=== PATIENT | male | born 1960 | race Caucasian/White ===

== ENCOUNTER 2018-09-21 01:21 | Inpatient (IN) | payer MEDICARE, BC ==
[2018-09-21] MEDS ORDERED: Acetaminophen TAB* 325 MG PO ONE (01:54)
[2018-09-21] MEDS ORDERED: NS 0.9% 1000 ML** 3,000 ML IV ONE (01:55)
[2018-09-21] MEDS ORDERED: Vancomycin(*) 1,000 MG in NS 0.9% 250 ML* 250 ML IVPB ONE ×2 (01:56→06:30)
[2018-09-21] MEDS ORDERED: Levofloxacin 750 MG IVPREMIX(* 750 MG/150 ML BAG IVPB ONE (01:56)
[2018-09-21] MEDS ORDERED: NS 0.9% 1000 ML** 1,000 ML IV ONE (01:57)
[2018-09-21] MEDS ORDERED: Ibuprofen TAB* 400 MG PO ONE (01:58)
--- NOTE | 2018-09-21 02:01 | ED ---
Shortness of Breath - HPI Summary HPI Summary: A 58 y/o male brought in by [facility] presents to [facility] with a chief complaint of SOB since yesterday. He also c/o CP with deep breaths, shoulder pain, fever, chills and productive cough. At triage he rated his pain as a 3/10 in severity. The patient reports that on 09/13/18 he was seeing his binder operator in [place] when he was sent to the [facility] ED and then was transferred to [facility]. The patient reports on 09/13/18 he had a catheter placed and it was taken out on 09/16/18 and he was discharged. Pt has a Shiley in left upper chest wall. The patient reports a pericardial effusion and had 1100 CCs of fluid drained. He claims that his results showed no bacteria or virus. The patient is also in end stage renal failure from his multiple myeloma and has been on dialysis for 6 weeks. He is being treated at the [facility] in [facility]. The patient reports that he was on Velcade for two years but is currently off of his medications. - History of Current Complaint Chief Complaint: EDShortnessOfBreath Hx Obtained From: Patient, Family/Director Economic, EMS Onset/Duration: Sudden Onset, Lasting Days, Still Present Timing: Constant Current Severity: Mild Dyspnea At: Rest Aggrevating Factors: Nothing Alleviating Factors: Nothing Associated Signs & Symptoms: Cough (Productive), Chest Pain w/Cough, Fever, Chills - Allergy/Home Medications Allergies/Adverse Reactions: Allergies Allergy/AdvReac Type Severity Reaction Status Date / Time latex Allergy Hives Verified 09/21/18 01:50 Home Medications: Home Medications ALPRAZolam [Alprazolam] 0.5 mg PO Q12HR 09/21/18 [History Confirmed 09/21/18] Acyclovir [Zovirax] 200 mg PO Q12HR 09/21/18 [History Confirmed 09/21/18] Aspirin 81 mg PO BEDTIME 09/21/18 [History Confirmed 09/21/18] Benadryl Allergy 25 mg PO BID 09/21/18 [History Confirmed 09/21/18] Cyanocobalamin (Vitamin B-12) [Vitamin B12] 2,500 mcg PO DAILY 09/21/18 [ History Confirmed 09/21/18] Levothyroxine Sodium 50 mcg PO DAILY 09/21/18 [History Confirmed 09/21/18] Magnesium Oxide 250 mg PO DAILY 09/21/18 [History Confirmed 09/21/18] Pramipexole 1 mg PO BEDTIME 09/21/18 [History Confirmed 09/21/18] Tramadol HCl ER 200 mg PO DAILY 09/21/18 [History Confirmed 09/21/18] Vitamin B6* 100 mg PO 09/21/18 [History] Vitamin D3 2,000 mcg PO DAILY 09/21/18 [History Confirmed 09/21/18] PMH/Surg Hx/FS Hx/Imm Hx History: Reports: Other Problems/Disorders - End stage renal failure Sensory History: Denies: Hx Deafness EENT History: Denies: Hx Deafness Neurological History: Reports: Hx Peripheral Neuropathy - Cancer History Cancer Type, Location and Year: multiple myeloma for 2 years - Surgical History Surgery Procedure, Year, and Place: Cardiac cath on 09/13/18 Infectious Disease History: No Infectious Disease History: Denies: Traveled Outside the [place] in Last 30 Days - Family History Known Family History: Negative: Blood Disorder - Social History Lives: With Family Alcohol Use: None Hx Substance Use: No Substance Use Type: Reports: None Hx Tobacco Use: Yes Smoking Status (MU): Heavy Every Day Tobacco Smoker Review of Systems Positive: Fever, Chills Positive: Chest Pain Positive: Shortness Of Breath, Cough Positive: Arthralgia - shoulder pain All Other Systems Reviewed And Are Negative: Yes Physical Exam - Summary Physical Exam Summary: VITAL SIGNS: Reviewed. GENERAL: Patient is a morbidly obese MALE who is lying comfortable in the stretcher. Patient is not in any acute respiratory distress. HEAD AND FACE: No signs of trauma. No ecchymosis, hematomas or skull depressions. No sinus tenderness. EYES: PERRLA, EOMI x 2, No injected conjunctiva, no nystagmus. EARS: Hearing grossly intact. Ear canals and tympanic membranes are within normal limits. MOUTH: Oropharynx within normal limits. NECK: Supple, trachea is midline, no adenopathy, no JVD, no carotid bruit, no c- spine tenderness, neck with full ROM. CHEST: Symmetric, no tenderness at palpation, Dialysis catheter left upper chest wall LUNGS: Clear to auscultation bilaterally. No wheezing or crackles. CVS: tachycardic and irregular, S1 and S2 present, no murmurs or gallops appreciated. ABDOMEN: Soft, non-tender. Obese and distended. No rebound no guarding, and no masses palpated. Bowel sounds are normal. EXTREMITIES: FROM in all major joints, Bilateral pitting edema +2-3 with chronic venous stasis, no cyanosis or clubbing. NEURO: Alert and oriented x 3. No acute neurological deficits. Speech is normal and follows commands. SKIN: Dry and warm Triage Information Reviewed: Yes Vital Signs On Initial Exam: Initial Vitals Temp Pulse Resp BP Pulse Ox 101.0 F 130 24 92/47 95 09/21/18 01:35 09/21/18 01:35 09/21/18 01:35 09/21/18 01:35 09/21/18 01:35 Vital Signs Reviewed: Yes Diagnostics - Vital Signs Vital Signs Temp Pulse Resp BP Pulse Ox 09/21/18 01:35 101.0 F 130 24 92/47 95 - Laboratory Result Diagrams: 09/21/18 02:36 09/21/18 06:15 Lab Statement: Any lab studies that have been ordered have been reviewed, and results considered in the medical decision making process. - Radiology CXR Radiology Interpretation Completed By: ED Physician Summary of Radiographic Findings: Bilateral basal atelectasis. No acute process. Pending official imaging report. - CT chest/abdomen/pelvis CT Interpretation Completed By: Radiologist Summary of CT Findings: CT chest impression: 1. Cardiomegaly with coronary artery calcification. Moderate pericardial. effusion. 2. Dilated main pulmonary artery trunk measuring up to 3.5 cm in transverse. diameter which may be due to pulmonary artery hypertension. 3. Mild centrilobular emphysema. Bibasilar atelectasis. 4. A 14 mm pulmonary nodule in the right lower lobe. ED physician has reviewed this imaging report. CT abdomen/pelvis impression: 1. Hepatosplenomegaly. 2. Bilateral perinephric stranding which is non- specific however could be seen. in pyelonephritis. 3. A small hiatal hernia. 4. Colonic diverticulosis with no evidence of acute diverticulitis. 5. A 14 mm pulmonary nodule in the right lower lobe. Moderate pericardial. effusion. ED physician has reviewed this imaging report. - EKG 2:20 Cardiac Rate: Tachycardia - [address] Segment: Non-Specific Summary of EKG Findings: EKG at 02:20 showed sinus tachycardia 126 bpm, non- specific ST. Re-Evaluation - Re-Evaluation First Eval Re-Evaluation Time: 02:06 Change: Unchanged Comment: Re-evaluating patient Second Eval Re-Evaluation Time: 02:28 Change: Unchanged Comment: Re-evaluating patient Third Eval Re-Evaluation Time: 03:15 Change: Unchanged Comment: Re-evaluating patient Fourth Eval Re-Evaluation Time: 04:18 Change: Unchanged Comment: Discussed results. Course/Dx - Course Course Of Treatment: A 58 y/o male brought in by [facility] presents to [facility] with a chief complaint of SOB since yesterday. The physical exam revealed that the patient is morbidly obese with a dialysis catheter left upper chest wall, heart is tachycardic and irregular, abdomen is distended without tenderness, bilateral pitting edema +2-3 with bilateral chronic venous stasis. In the ED course the patient was given Tylenol PO, Motrin PO, Levaquin IV, Vancomycin IV, Levophed IV, Morphine IV and Sodium Chloride IV. EKG at 02: 20 showed sinus tachycardia 126 bpm, non-specific ST. CXR showed Bilateral basal atelectasis. No acute process. Bloodwork, chemistries and urines obtained. Urines consitent with UTI. CT chest impression: 1. Cardiomegaly with coronary artery calcification. Moderate pericardial. effusion. 2. Dilated main pulmonary artery trunk measuring up to 3.5 cm in transverse. diameter which may be due to pulmonary artery hypertension. 3. Mild centrilobular emphysema. Bibasilar atelectasis. 4. A 14 mm pulmonary nodule in the right lower lobe. CT abdomen/pelvis impression: 1. Hepatosplenomegaly. 2. Bilateral perinephric stranding which is non-specific however could be seen. in pyelonephritis. 3. A small hiatal hernia. 4. Colonic diverticulosis with no evidence of acute diverticulitis. 5. A 14 mm pulmonary nodule in the right lower lobe. Moderate pericardial. effusion. Case discussed with Dr. Giron, hospitalist, who accepted the patient for admission. - Diagnoses Provider Diagnoses: Pericardial effusion, Pyelonephritis, Sepsis - Physician Notifications Discussed Care of Patient With: Mouna Giron Time Discussed With Above Provider: 04:29 Instructed by Provider To: Admit As Inpatient - Critical Care Time Critical Care Time: 75-104 min Discharge - Sign-Out/Discharge Documenting (check all that apply): Patient Departure - admit Patient Received Moderate/Deep Sedation with Procedure: No - Discharge Plan Condition: Fair Disposition: ADMITTED TO [facility] - Billing Disposition and Condition Condition: FAIR Disposition: Admitted to [facility] - Attestation Statements Document Initiated by Scribe: Yes Documenting Scribe: Ramiro Castro Provider For Whom Derrick is Documenting (Include Credential): Sage Valdez MD Scribe Attestation: Ramiro Paula, scribed for Sage Valdez MD on 09/22/18 at 0603. Scribe Documentation Reviewed: Yes Provider Attestation: The documentation as recorded by the Ramiro grace accurately reflects the service I personally performed and the decisions made by Amber velazquez MD Status of Scribe Document: Viewed
[2018-09-21] MEDS ORDERED: Morphine 4 MG/ML VIAL (1 ml) 4 MG/ML VIAL IV ONE (02:29)
[2018-09-21] MEDS ORDERED: Norepinephrine 16MCG/ML IVPRE* 4,000 MCG/250 ML BAG IV ONE (02:44)
[2018-09-21 02:45] LABS: ABS Basophils 0 10^3/ul (0-0.2); ABS Eosinophils 0.1 10^3/ul (0-0.6); ABS Lymphocytes 0.1 10^3/ul (1.0-4.8); ABS Monocytes 0.8 10^3/ul (0-0.8); ABS Nucleated RBC 0 10^3/ul; Eosinophil % 0.5 %; Hematocrit 32 % (36-46); Hemoglobin 10.5 g/dL (14.0-18.0); Lymphocyte % 0.8 %; Mean Corpuscular HGB Conc 33 g/dL (31-36); Mean Corpuscular Hemoglobin 31 pg (27-31); Mean Corpuscular Volume 94 fL (80-94); Mean Platelet Volume 7.5 fL (7.4-10.4); Nucleated Red Blood Cells % 0; Platelet Count 159 10^3/uL (150-450); Red Blood Count 3.35 10^6 /uL (4.18-5.48); Red Cell Distribution Width 19 % (10.5-15)
[2018-09-21 02:52] LABS: Activated Partial Thrombo Time 62.3 seconds (26.0-36.3); INR 1.25 (0.77-1.02)
[2018-09-21 03:01] LABS: Albumin 3.3 g/dL (3.2-5.2); Albumin/Globulin Ratio 1.1 (1-3); BUN/Creatinine Ratio 6.5 (8-20); C Reactive Protein 99.8 mg/L (<8.01); Calcium 9.1 mg/dL (8.6-10.3); EGFR African American 15.9 (>60); EGFR Non-African American 13.1 (>60); Globulin 3.1 g/dL (2-4); Total Bilirubin 0.7 mg/dL (0.2-1.0); Total Protein 6.4 g/dL (6.4-8.9)
[2018-09-21 03:03] LABS: Troponin I 0.01 ng/mL (<0.04)
[2018-09-21 03:57] LABS: Urine Appearance Cloudy; Urine Bacteria Absent (Absent); Urine Bilirubin Negative (Negative); Urine Blood 3+ (Negative); Urine Color Amber; Urine Glucose 1+(50 mg/dL) (Negative); Urine Ketones Trace (Negative); Urine Nitrite Negative (Negative); Urine Protein 2+(100 mg/dL) (Negative); Urine Red Blood Cell 3+(>10/hpf) (Absent); Urine Specific Gravity 1.015 (1.010-1.030); Urine Squamous Epithelial Cell Present (Absent); Urine Urobilinogen Negative (Negative); Urine White Blood Cell 3+(>20/hpf) (Absent)
[2018-09-21] MEDS: Norepinephrine 16MCG/ML IVPRE* 4,000 MCG/250 ML BAG IV SCH ×2 (04:13→13:23)
[2018-09-21] MEDS: NS 0.9% 1000 ML** 1,000 ML IV SCH ×2 (04:15→08:27)
[2018-09-21 04:18] LABS: Erythrocyte Sed Rate 83 mm/Hr (0-19)
[2018-09-21 05:11] LABS: Influenza A Molecular NEGATIVE (Negative); Influenza B Molecular NEGATIVE (Negative)
[2018-09-21] MEDS ORDERED: Polyethylene Glycol 3350* 17 GM PACKET PO PRN (05:13)
[2018-09-21] MEDS ORDERED: Senna TAB PO PRN (05:13)
[2018-09-21] MEDS ORDERED: diPHENhydraMINE PO* 25 MG PO PRN (05:16)
[2018-09-21] MEDS ORDERED: Piperacillin/Tazobac ADVAN(*) 3.375 GM in NS 0.9% 100 ML* 100 ML IVPB ONE (05:32)
[2018-09-21] MEDS ORDERED: Vancomycin per Pharmacy* NOTE FOLLOW UP SCH (06:00)
[2018-09-21] MEDS ORDERED: Meropenem 1 GM PREMIX(*) 1 GM/50 ML BAG IV SCH (06:00)
[2018-09-21] MEDS ORDERED: Zosyn per Pharmacy* NOTE FOLLOW UP SCH (06:00)
[2018-09-21 06:40] LABS: BUN/Creatinine Ratio 6.7 (8-20); Calcium 8.4 mg/dL (8.6-10.3); EGFR African American 16.3 (>60); EGFR Non-African American 13.4 (>60); Magnesium 1.9 mg/dL (1.9-2.7); Phosphorus 2.9 mg/dL (2.5-5.0); Potassium 3.9 mmol/L (3.5-5.0)
[2018-09-21] MEDS: Levothyroxine TAB* 50 MCG TAB PO SCH (06:41)
[2018-09-21] MEDS: Heparin VIAL(*) 5000 UNITS/ML VIAL (FIVE THOUSAND) SUBCUT SCH ×3 (06:41→22:04)
--- NOTE | 2018-09-21 07:28 | HP ---
HISTORY AND PHYSICAL: DATE OF ADMISSION: 09/21/18 PRIMARY CARE PROVIDER: Dr. Bessie Holt in [place], [place]. HEALTHCARE PROXY AND POWER OF CREPE SOLE SCOURER: Julissa, , phone number [phone]. CODE: Full code. CHIEF COMPLAINT: Acute shortness of breath, weakness, fevers, and burning on urination. HISTORY OF PRESENT ILLNESS: Mr. Myers is a 58-year-old man with a history of multiple myeloma, previously on chemotherapy complicated by end-stage renal disease, now on hemodialysis for the last 6 weeks. He also has active tobacco use, hypothyroidism, obesity, obstructive sleep apnea, on CPAP, and posttraumatic stress disorder. He is presenting with feeling of fatigue, weakness, and chills for the last couple of days. He is able to make small amounts of urine daily and reports severe burning on urination for the last few days. He denies chest pain, cough, abdominal pain, nausea, vomiting, diarrhea. The patient does report constipation chronically. He denies new flank pain, only reporting his chronic back pain, made worse from sitting in the hospital stretcher. Of note, the patient had a recent admission at [facility] and then transferred to [facility] for pericarditis complicated by pericardial effusion. He had a drain placed with approximately 1 L of fluid drained over 3 days and he was discharged from that admission 5 days ago. He reports no bacteria or virus found in the pericardial fluid. In the emergency room, the patient was found with tachycardia, fever, and elevated white blood cell count. Per ER physician, bedside ultrasound was without large pericardial effusion or evidence of tamponade. IVC diameter was decreased. The patient underwent CT of chest, abdomen, and pelvis, which was concerning for pyelonephritis. He was given approximately 3 L of fluid and required norepinephrine drip to maintain good blood pressures. He was also given vancomycin and Levaquin and admitted to the ICU. Of note, in the emergency room, the patient was given ibuprofen as well. PAST MEDICAL HISTORY: 1. Multiple myeloma being treated at the [facility] in [place], [place]. He reports being on Velcade for 2 years, but has not recently been on treatment. 2. End-stage renal disease, either complication from multiple myeloma or his antineoplastic agents. Gets hemodialysis Tuesday, Tuesday, Tuesday through dialysis catheter in the left upper chest wall. 3. Obesity and obstructive sleep apnea, on home CPAP. 4. Active tobacco use. 5. Neuropathy impairing fine motor skills in hands. 6. PTSD. 7. Hypothyroidism. HOME MEDICATIONS: 1. Aspirin 81 mg daily. 2. Alprazolam 0.5 q.12 hours for anxiety. 3. Benadryl 25 mg p.o. b.i.d. for itching. 4. Acyclovir 200 mg p.o. q.12 hours. 5. Pramipexole 1 mg p.o. at bedtime. 6. Levothyroxine 50 mcg daily. 7. Magnesium 250 mg daily. 8. Vitamin D 2000 units daily. 9. Tramadol 200 mg ER daily. 10. Vitamin B12 and B6. ALLERGIES: LATEX. The patient reports that phenobarbital makes his mind very altered, explained this is not an allergy. GABAPENTIN cause memory issues. FAMILY HISTORY: His father at 63 from a stroke. His mother is alive and well at 82; she has a history of cervical and breast cancer. SOCIAL HISTORY: The patient is a retired public service officer. He lives at home with his , Julissa who is his healthcare proxy and power of real estate attorney. He is a pack and a half day smoker since age 11. He uses medical marijuana. PHYSICAL EXAMINATION GENERAL: Chronically ill-appearing obese man, in no acute distress, alert and conversant and very pleasant. VITAL SIGNS: T-max 101, heart rate 80s, blood pressure 105/50, on Levophed 5, oxygen saturation 100% on room air, respiratory rate 14. HEENT: Pupils equal, round, reactive to light. Oropharynx is clear. NECK: Supple. Unable to appreciate JVP due to body habitus. LUNGS: Clear to auscultation bilaterally. HEART: Regular rate and rhythm. No murmurs, gallops, or rubs. CHEST: Dialysis catheter noted in the left upper chest wall. ABDOMEN: Protuberant, soft, nontender. Bowel sounds normal. No CVA tenderness. EXTREMITIES: Lower extremities distally with circumferential erythema that the patient reports is his baseline, not tender to palpation. 2+ pitting edema to half up martinez. The patient reports this significantly improved from prior to dialysis. DIAGNOSTIC STUDIES/LAB DATA: Labs reviewed and significant for WBC elevated to 17 with neutrophilic predominance, normocytic anemia with hemoglobin 10.5, ESR 83. INR 1.25. BUN and creatinine 30/4.16. CRP 100. BNP 108. UA with protein, blood, positive leuk esterase, absent bacteria. Influenza swab negative. Chest x-ray grossly normal on overnight read. CT chest, abdomen, and pelvis without contrast, significant for cardiomegaly, dilated main pulmonary artery, mild centrilobular emphysema, hepatosplenomegaly , bilateral perinephric stranding, nonspecific but could be seen in pyelonephritis, 14 mm pulmonary nodule in the right lower lobe. EKG with sinus tach, 126. ASSESSMENT AND PLAN: This is a 58-year-old man with a history of multiple myeloma, previously on Velcade, complicated by end-stage renal disease, now on hemodialysis; obesity and obstructive sleep apnea, on CPAP; active tobacco use; hypothyroidism, who presents shortly after recent discharge for pericarditis with pericardial effusion with new shortness of breath, weakness, chills, fevers, and dysuria. He was found with intravascular volume depletion, leukocytosis with neutrophilic predominance and CT scan with possible pyelonephritis. He has been fluid resuscitated and still requiring pressor, so he will be admitted to the ICU for further monitoring. 1. Neuro: No active issues. H/o PTSD. - Continue to monitor mental status. - will continue home benzo p.r.n. if awake and alert. 2. Cardiovascular. Septic shock from possible pyelo. - Titrate pressors off as tolerated. - Maintain MAP greater than 65, systolic blood pressure greater than 90. - Monitor urine output. - Judicious use of fluid given history of end-stage renal disease, only making small amounts of urine. - Continue home aspirin for primary prophylaxis. - Continue to monitor on telemetry. 3. Respiratory: DALLAS. Active tobacco use. - continue CPAP nightly. - patient reports SOB, but oxygen saturations are normal on room air. Follow up VBG - declines NRT 4. ID: Septic shock from bacterial source. Highest on differential given imaging findings is pyelonephritis. No pneumonia seen on CT of the chest. - follow up blood and urine cultures - continue on vanc and Zosyn; broaden to cabapenem if not improving 5. GI: No active issues. The patient reports chronic constipation. - Will start on bowel regimen. 6. Renal: ESRD with HD MWF. Last dialysis session was afternoon of 09/20/18. - renally dose meds, avoid nephrotoxic meds - including NSAIDs - follow up morning electrolytes and phosphorus - maintain on a renal diet 7. Endocrine: History of hypothyroidism. Continue home levothyroxine. 8. For DVT prophylaxis, subcu heparin. The patient is full code. TIME SPENT: Approximately 70 minutes spent on admission of this patient, more than half of which was spent at bedside for interview and exam. [id number]/[facility] #: [id number] TONY
[2018-09-21] MEDS: Cyanocobalamin TAB* 500 MCG PO SCH (09:39)
[2018-09-21] MEDS: Acyclovir* 200 MG CAP PO SCH ×2 (09:39→23:43)
[2018-09-21] MEDS: traMADol TAB* 50 MG PO SCH ×2 (09:39→22:03)
[2018-09-21] MEDS: Magnesium Oxide TAB* 400 MG PO SCH (09:39)
[2018-09-21] MEDS ORDERED: Perflutren Lipid Microsphere* 3 ML VIAL ONE (10:38)
[2018-09-21] MEDS: ZOSYN 3.375 GM Q12H per EXTENDED INFUSION IVPB SCH ×4 (11:37→22:03)
--- NOTE | 2018-09-21 12:35 | ECHO ---
Patient: LIZBET VOGEL [facility] Rec#: [id number] : 1960 Date: 09/21/2018 Age: 58y Height: 180 cm / 70.9 in Weight: 147.4 kg / 324.9 lbs Sex: M BSA: 2.59 Room#: ICU 3 Admit Date#: 09/21/2018 Type: Inpatient Referring: Ronal Alonso MD Reading: Mario Velez MD Technical Sales Engineer: Jazmín Burnette RN RDCS Transthoracic Echocardiogram Indication: Pericardial effusion BP: 112/54 HR: 74 Rhythm: NSR with PACs Findings History: Morbid obesity, multiple myeloma, chemotherapy, ESRD, hemodialysis. thyroid disease, DALLAS, recent pericarditis with pericardial effusion and pericardiocentesis. Technical Comments: The study is technically limited due to poor acoustic windows. The study is technically limited due to patient body habitus. The study is technically limited due to the patient's smoking history. Left Ventricle: The left ventricular chamber size is normal. Moderate concentric left ventricular hypertrophy is observed. Global left ventricular wall motion and contractility are within normal limits. There is normal left ventricular systolic function. The estimated ejection fraction is 60-65%. Abnormal left ventricular diastolic function is observed. Abnormal left ventricular diastolic filling is observed, consistent with impaired relaxation. Left Atrium: The left atrium is mildly dilated. Right Ventricle: The right ventricle wall thickness is mildly increased. The right ventricular cavity size is normal. The right ventricular global systolic function is mildly reduced. Right Atrium: The right atrium is not well visualized. Aortic Valve: The aortic valve structure is not well visualized. The aortic valve leaflets are mildly thickened. There is no evidence of aortic regurgitation. There is no evidence of aortic stenosis. Mitral Valve: The mitral valve leaflets are mildly thickened. There is no evidence of mitral regurgitation. There is no evidence of mitral stenosis. Tricuspid Valve: The tricuspid valve structure is not well visualized. Pulmonic Valve: The pulmonic valve structure is not well visualized. Pericardium: There is a moderate pericardial effusion.The pericardial effusion measures 0.6 cm anteriorly and 1.3-1.5cm posteriorly in the TATIANA view and 1.3cm posteriorly in the PSA view. The effusion is not well seen in the apical views. The respiratory variation is 26% from mitral inflow, 2% from LVOT velocity, and 49% from tricuspid inflow. There is a prominent apical fat pad. The pericardial effusion is seen adjacent to the left ventricle.NO evidence of hemodynamic compromise by 2d. The mitral doppler variation is borderline but these findings may be related to coexisting pulmonary impairment and cor pulmonale. The pericardial effusion is seen adjacent to the right ventricle. Aorta: There is no dilatation of the ascending aorta. There is no dilatation of the aortic arch. There is mild dilatation of the aortic root. Pulmonary Artery: The main pulmonary artery is not well visualized. Venous: The inferior vena cava appears normal in size. There is less than 50% respiratory change in the inferior vena cava dimension. Contrast: Definity was used to optimize study. A total of 5 ml of diluted Definity was given IV to enhance endocardial border definition. Summary: There was not any prior study for comparison. Conclusions Moderate concentric left ventricular hypertrophy is observed. The estimated ejection fraction is 60-65%. Abnormal left ventricular diastolic filling is observed, consistent with impaired relaxation. The left atrium is mildly dilated. The right ventricle wall thickness is mildly increased. The right ventricular global systolic function is mildly reduced. The aortic valve leaflets are mildly thickened. There is a moderate pericardial effusion. The pericardial effusion is seen adjacent to the left ventricle. No evidence of hemodynamic compromise by 2d. The mitral doppler variation is borderline but these findings may be related to coexisting pulmonary impairment and cor pulmonale. There is mild dilatation of the aortic root. Measurements Name Value Normal Range RVDdMajor (2D) 3.3 cm (2.2 - 4.4) RVAW (2D) 1 cm (0.2 - 0.5) IVSd (2D) 1.5 cm (0.6 - 1) LVPWd (2D) 1.5 cm (0.6 - 1) LVIDd (2D) 4.8 cm (3.6 - 5.4) Aortic Annulus 2.7 cm (1.4 - 2.6) Ao root diameter (2D) 3.5 cm (2.1 - 3.5) Ascending Ao 3.2 cm (2.1 - 3.4) Aortic arch 3.1 cm (1.8 - 3.4) LA dimension (AP) 2D 2.9 cm (2.3 - 3.8) LAd ISD 4CH 6 cm (2.9 - 5.3) LA ISD 4CH W 4 cm (2.5 - 4.5) Name Value Normal Range MV E-wave Vmax 1 m/sec - MV deceleration time 268 msec - MV A-wave Vmax 0.72 m/sec - MV E:A ratio 1.4 ratio - LV septal e' Vmax 0.09 m/sec - LV lateral e' Vmax 0.1 m/sec - LV E:e' septal ratio 9 ratio - LV E:e' lateral ratio 10 ratio - Name Value Normal Range AV Vmax 1.8 m/sec - AV VTI 31.9 cm - AV peak gradient 12 mmHg - AV mean gradient 8 mmHg - LVOT Vmax 1.5 m/sec - LVOT VTI 26 cm - LVOT peak gradient 9 mmHg - LVOT mean gradient 5 mmHg - RENALDO Vmax 1 m/sec - Name Value Normal Range IVC diameter 2.1 cm - Name Value Normal Range PV Vmax 1.2 m/sec -
--- NOTE | 2018-09-21 14:10 | PN ---
Subjective Date of Service: 09/21/18 Interval History: Patient seen this morning in ICU, he feels much better when compared to yesterday. off the IVF s/p 2.5 Liter IV yesterday for hypotension. Currently in ICU on IV abx. doing well mentally and BP stable. Past Medical History: Unchanged from Admission Objective Active Medications: Acyclovir (Zovirax Cap*) 200 mg PO Q12HR [facility] Last Admin: 09/21/18 09:39 Dose: 200 mg Alprazolam (Xanax Tab*) 0.5 mg PO Q12HR PRN PRN Reason: ANXIETY Aspirin (Aspirin Ec Tab*) 81 mg PO BEDTIME [facility] Cyanocobalamin (Vitamin B12 Tab*) 2,500 mcg PO DAILY [facility] Last Admin: 09/21/18 09:39 Dose: 2,500 mcg Diphenhydramine HCl (Benadryl Po*) 25 mg PO BID PRN PRN Reason: ITCHING Heparin Sodium (Porcine) (Heparin Vial(*)) 5,000 units SUBCUT Q8HR [facility] Last Admin: 09/21/18 06:41 Dose: 5,000 units Norepinephrine Bitartrate (Levophed 16 Mcg/Ml Premix Bag*) 4,000 mcg in 250 mls @ 37.5 mls/hr IV .INITIAL RATE [facility] Last Admin: 09/21/18 13:23 Dose: 22.5 mls/hr Sodium Chloride (Ns 0.9% 1000 Ml) 1,000 mls @ 250 mls/hr IV PER RATE [facility] Last Admin: 09/21/18 08:27 Dose: 250 mls/hr Piperacillin Sod/Tazobactam (Sod 3.375 gm/ Sodium Chloride) 100 mls @ 25 mls/ hr IVPB Q12H [facility] Last Admin: 09/21/18 11:37 Dose: 25 mls/hr Levothyroxine Sodium (Synthroid Tab*) 50 mcg PO DAILY@0600 [facility] Last Admin: 09/21/18 06:41 Dose: 50 mcg Magnesium Oxide (Magox 400 Tab*) 400 mg PO DAILY [facility] Last Admin: 09/21/18 09:39 Dose: 400 mg Pharmacy Consult (Vancomycin Per Pharmacy*) 1 note FOLLOW UP .VANC PER PHARMACY [facility] Pharmacy Consult (Zosyn Per Pharmacy*) 1 note FOLLOW UP .ZOSYN PER PHARMACY [facility] Pharmacy Consult (Vancomycin Random Level*) 1 note FOLLOW UP ONCE ONE Stop: 09/22/18 06:01 Polyethylene Glycol/Electrolytes (Miralax*) 17 gm PO DAILY PRN PRN Reason: CONSTIPATION Pramipexole Dihydrochloride (Mirapex Tab*) 1 mg PO BEDTIME [facility] Senna (Senokot Tab*) 1 tab PO DAILY PRN PRN Reason: CONSTIPATION Tramadol HCl (Ultram*) 50 mg PO BID [facility] Last Admin: 09/21/18 09:39 Dose: 50 mg Vital Signs - 8 hr 09/21/18 09/21/18 09/21/18 06:07 06:20 06:29 Temperature 99.3 F 99.6 F Pulse Rate 88 90 90 Respiratory 20 16 16 Rate Blood Pressure 100/59 100/59 100/59 (mmHg) O2 Sat by Pulse 100 100 100 Oximetry 09/21/18 09/21/18 09/21/18 06:45 07:00 07:01 Temperature Pulse Rate 82 85 87 Respiratory 22 19 18 Rate Blood Pressure 117/61 102/59 (mmHg) O2 Sat by Pulse 99 99 98 Oximetry 09/21/18 09/21/18 09/21/18 07:15 07:30 07:45 Temperature Pulse Rate 88 82 82 Respiratory 21 18 19 Rate Blood Pressure 111/59 112/54 106/56 (mmHg) O2 Sat by Pulse 99 99 99 Oximetry 09/21/18 09/21/18 09/21/18 07:50 08:00 08:01 Temperature 97.6 F Pulse Rate 81 81 Respiratory 15 23 Rate Blood Pressure 122/64 (mmHg) O2 Sat by Pulse 99 98 Oximetry 09/21/18 09/21/18 09/21/18 08:15 08:30 08:45 Temperature Pulse Rate 77 80 77 Respiratory 17 17 16 Rate Blood Pressure 109/57 102/56 107/56 (mmHg) O2 Sat by Pulse 99 99 97 Oximetry 09/21/18 09/21/18 09/21/18 08:59 09:00 09:16 Temperature 99 F Pulse Rate 80 83 Respiratory 22 20 Rate Blood Pressure 103/58 (mmHg) O2 Sat by Pulse 99 98 Oximetry 09/21/18 09/21/18 09/21/18 09:30 09:45 10:00 Temperature Pulse Rate 72 76 81 Respiratory 15 25 20 Rate Blood Pressure 108/53 115/56 91/51 (mmHg) O2 Sat by Pulse 99 99 99 Oximetry 09/21/18 09/21/18 09/21/18 10:15 10:30 10:46 Temperature Pulse Rate 76 76 78 Respiratory 17 23 17 Rate Blood Pressure 109/47 106/50 94/50 (mmHg) O2 Sat by Pulse 100 100 99 Oximetry 09/21/18 09/21/18 09/21/18 11:00 11:15 12:00 Temperature 99 F Pulse Rate 82 80 Respiratory 26 20 Rate Blood Pressure 102/46 102/51 (mmHg) O2 Sat by Pulse 98 100 Oximetry Oxygen Devices in Use Now: Nasal Cannula Appearance: Awake, alert, no distress. comfortable Eyes: No Scleral Icterus, - - EOMI Ears/Nose/Mouth/Throat: NL Teeth, Lips, Gums, Mucous Membranes Moist Neck: NL Appearance and Movements; NL JVP, Trachea Midline Respiratory: Symmetrical Chest Expansion and Respiratory Effort, - - bibasilar crackles. Cardiovascular: NL Sounds; No Murmurs; No JVD, - - + 2 edema Abdominal: NL Sounds; No Tenderness; No Distention, - - obese Extremities: - - + 2 edema, erythematous Result Diagrams: 09/21/18 02:36 09/21/18 06:15 Microbiology and Other Data: Microbiology 09/21/18 10:10 Nasal Screen MRSA (PCR) - Final Nasal Mrsa Detected Assess/Plan/Problems-Billing Assessment: 58 year old male admitted for fever and hypotension consistent with sepsis secondary to pyelonephritis. - Patient Problems (1) Sepsis associated hypotension Current Visit: Yes Status: Acute Code(s): A41.9 - SEPSIS, UNSPECIFIED ORGANISM; I95.9 - HYPOTENSION, UNSPECIFIED SNOMED Code(s): 55230181 Comment: - Etiology most likely due to pyelonephritis given his positive UA and CT scan finding - Follow up final urine culture. - ID consulted, recommendations pending. - Continue wide spectrum antibiotics with Zosyn pending final culture. - I asked Dialysis to culture his dialysis catheter in am during dialysis (2) Pyelonephritis, acute Current Visit: Yes Status: Acute Code(s): N10 - ACUTE PYELONEPHRITIS SNOMED Code(s): 78174406 Comment: - Etiology most likely due to pyelonephritis given his positive UA and CT scan finding - Follow up final urine culture. - ID consulted, recommendations pending. - Continue wide spectrum antibiotics with Zosyn day # 1, Vanco renal dose, pending final culture. - I asked Dialysis to culture his dialysis catheter in am during dialysis (3) Multiple myeloma Current Visit: Yes Status: Acute Code(s): C90.00 - MULTIPLE MYELOMA NOT HAVING ACHIEVED REMISSION SNOMED Code(s): 430336050 Comment: - Outpatient chemo - Follow up daily CBC and chemistry, Ca+ (4) ESRD (end stage renal disease) on dialysis Current Visit: Yes Status: Acute Code(s): N18.6 - END STAGE RENAL DISEASE; Z99.2 - DEPENDENCE ON RENAL DIALYSIS SNOMED Code(s): 453415271 Comment: - Notified fuse cutter manager instrumentation and will add him to the schedule for am - I requested to have the blood culture during dialysis in am (5) DALLAS (obstructive sleep apnea) Current Visit: Yes Status: Acute Code(s): G47.33 - OBSTRUCTIVE SLEEP APNEA ( ADULT) (PEDIATRIC) SNOMED Code(s): 50489128 Comment: - May use his own CPAP (6) PTSD (post-traumatic stress disorder) Current Visit: Yes Status: Acute Code(s): F43.10 - POST-TRAUMATIC STRESS DISORDER, UNSPECIFIED SNOMED Code(s): 57599204 Comment: - PRN Xanax (7) Hypothyroid Current Visit: Yes Status: Acute Code(s): E03.9 - HYPOTHYROIDISM, UNSPECIFIED SNOMED Code(s): 89649689 Comment: - Continue levoxyl 50 mcg daily (8) Pericardial effusion Current Visit: Yes Status: Acute Code(s): I31.3 - PERICARDIAL EFFUSION ( NONINFLAMMATORY) SNOMED Code(s): 704090903 Comment: - S/p pericardial window last week at [facility] (will request discharge summary) - Echo done today 09/21/18 did not show evidence of tamponade, but did confirm the presence of moderate effusion - I repeat echo for any sign of hypotension and cardiac decompensations. (9) DVT prophylaxis Current Visit: Yes Status: Acute Code(s): WJS1521 - SNOMED Code(s): 975620624 Comment: - Heparin 5000 Q 8 hrs
--- NOTE | 2018-09-21 14:32 | CONS ---
CONSULTATION REPORT: DATE OF CONSULTATION: 09/21/18 REQUESTING PHYSICIAN: Dr. Alonso. CONSULTING SERVICE: Infectious Disease. REASON FOR CONSULTATION: Fever, dehydration. IMPRESSION: 1. Fever, malaise, and rigors came on suddenly yesterday after hemodialysis. He could have a dialysis catheter infection. He also has a right chest port, which could be infected. He does not have any other prosthetic material present or other focal signs or symptoms currently. He does make a small amount of urine. His urinalysis is abnormal suggestive of infection. He could have urinary tract infection. He has no flank pain to suggest pyelonephritis. 2. Multiple myeloma and recent chemotherapy, which does make immune compromised. 3. Morbid obesity. 4. Endstage renal disease due to myeloma, on hemodialysis via left chest catheter. 5. Peripheral neuropathy. 6. PTSD. RECOMMENDATION: We will continue broad-spectrum antibiotics, vancomycin goal trough 15 to 20 and Zosyn every 12 hours dose for hemodialysis while we await cultures of the blood to include the dialysis catheter and port. Urine cultures pending as well. He does have trace lower extremity erythema, which has improved and due to lymphedema and not cellulitis. HISTORY OF PRESENT ILLNESS: This is a 58-year-old man with myeloma and endstage renal disease from myeloma, had his last chemotherapy about 3 months ago and then last week was at [facility] with a large pericardial effusion and tamponade, in which he had 1500 cc of fluid aspirated, apparently was unrevealing. A CT here of the chest, abdomen and pelvis does show moderate pericardial effusion. He has had an echocardiogram, which is pending. Yesterday , after hemodialysis, he developed a sudden onset of malaise, shaking chills, fatigue, anxiety; so he came to the hospital by ambulance overnight. He was febrile at 38.3. He was hypotensive requiring vasopressors. White count was 17 ,000. CRP was 100. Urinalysis showed blood and leukocyte esterase. Influenza PCR was negative . He did also note diffuse body aches, which are improved. Today, he feels like his usual self other than fatigue. Blood cultures were taken and are pending. A straight catheter was obtained with urinalysis results above, those cultures are pending. He has no sinus symptoms, no sore throat, chest pain, cough, dyspnea at rest. No abdominal pain, diarrhea or vomiting. He has no joint or spine pain. PAST MEDICAL HISTORY: 1. Multiple myelomas, oncologist is [facility] in [place], had his chemotherapy infusions at [facility], last treatment was about 3 months ago. It has been complicated by severe peripheral neuropathy. 2. Right chest port. 3. Endstage renal disease, on hemodialysis via left chest hemodialysis catheter. 4. Morbid obesity. 5. Tobacco abuse. 6. Obstructive sleep apnea, on CPAP. 7. PTSD. 8. Hypothyroidism. ALLERGIES: 1. LATEX. 2. GABAPENTIN. 3. PHENOBARBITAL. MEDICATIONS: 1. Acyclovir 200 mg p.o. every 12 hours. 2. Xanax. 3. Aspirin. 4. Vitamin B12. 5. Benadryl as needed. 6. Heparin subcutaneous injection. 7. Levothyroxine. 8. Magnesium oxide. 9. Zosyn 3.375 mg every 12 hours. 10. Tramadol. 11. Vancomycin, had 1 g yesterday. REVIEW OF SYSTEMS: A 14-point review is all negative except as noted above in the history of present illness. SOCIAL HISTORY: He is retired from [employer]. Lives in [place] with his . They have a dog. No travel. FAMILY HISTORY: Father at 63 from stroke. Mother alive and well at 82 , though did have breast and cervical cancer. PHYSICAL EXAMINATION: Vital Signs: Temperature 37.2, heart rate 80, respiratory rate 20, blood pressure 102/51, oxygen saturation 100% on room air. In general, he is awake, not in distress. Neurologic: He is alert and oriented x3. Follows commands. He has contractures of fingers on his hands. HEENT: There is no conjunctival hemorrhage. Oropharynx without lesions. Neck is supple without mass. Heart is regular rate and rhythm without murmurs, rubs or gallops. Lungs: Clear to auscultation bilaterally. Abdomen: Soft, nontender, nondistended; it is obese. Chest: Has a right chest and left chest catheter without surrounding erythema. Musculoskeletal: There is no spine tenderness to palpation. There is no joint synovitis. LAB DATA: White blood cell count 17, hemoglobin 10, platelets 159. Creatinine 4.5. potassium 3.9. Please see impressions and recommendations outlined above. Thanks for asking me to see Mr. Myers in consultation. [id number]/[facility] #: [id number] [facility]
[2018-09-21] MEDS: Aspirin EC TAB* 81 MG TAB.EC PO SCH (22:02)
[2018-09-21] MEDS: Pramipexole TAB* 0.5 MG PO SCH (23:43)
[2018-09-22] MEDS ORDERED: Vancomycin Random Level* NOTE FOLLOW UP ONE (06:00)
[2018-09-22] MEDS: Heparin VIAL(*) 5000 UNITS/ML VIAL (FIVE THOUSAND) SUBCUT SCH ×3 (06:46→20:18)
[2018-09-22] MEDS: Levothyroxine TAB* 50 MCG TAB PO SCH (06:47)
[2018-09-22 06:54] LABS: ABS Basophils 0 10^3/ul (0-0.2); ABS Eosinophils 0.2 10^3/ul (0-0.6); ABS Lymphocytes 0.6 10^3/ul (1.0-4.8); ABS Monocytes 0.4 10^3/ul (0-0.8); ABS Neutrophils 5.2 10^3/ul (1.5-7.7); ABS Nucleated RBC 0 10^3/ul; Eosinophil % 3.7 %; Hematocrit 29 % (36-46); Hemoglobin 9.5 g/dL (14.0-18.0); Lymphocyte % 9.7 %; Mean Corpuscular HGB Conc 33 g/dL (31-36); Mean Corpuscular Hemoglobin 31 pg (27-31); Mean Corpuscular Volume 95 fL (80-94); Mean Platelet Volume 7.7 fL (7.4-10.4); Nucleated Red Blood Cells % 0.1; Platelet Count 136 10^3/uL (150-450); Red Blood Count 3.05 10^6 /uL (4.18-5.48); Red Cell Distribution Width 20 % (10.5-15); White Blood Count 6.6 10^3/uL (3.5-10.8)
[2018-09-22 07:00] LABS: BUN/Creatinine Ratio 7.3 (8-20); Calcium 8.8 mg/dL (8.6-10.3); EGFR Non-African American 9.9 (>60); Magnesium 2.2 mg/dL (1.9-2.7); Phosphorus 4.6 mg/dL (2.5-5.0); Potassium 4.3 mmol/L (3.5-5.0)
[2018-09-22] MEDS: Cyanocobalamin TAB* 500 MCG PO SCH (08:39)
[2018-09-22] MEDS: traMADol TAB* 50 MG PO SCH ×2 (08:40→20:01)
[2018-09-22] MEDS: Acyclovir* 200 MG CAP PO SCH ×2 (08:40→20:01)
[2018-09-22] MEDS: Magnesium Oxide TAB* 400 MG PO SCH (08:40)
[2018-09-22 09:50] LABS: Vancomycin Random 13.5 mcg/mL
[2018-09-22] MEDS: ZOSYN 3.375 GM Q12H per EXTENDED INFUSION IVPB SCH ×4 (10:33→22:52)
--- NOTE | 2018-09-22 10:42 | PN ---
Progress Note - Progress Note Date of Service: 09/22/18 SOAP: Subjective: CC: Fever and malaise. HPI: Mr. Myers is a 58 yo male with PMH significant for ESRD secondary to multiple myeloma on hemodialysis, morbid obesity, peripheral neuropathy, PTSD, DALLAS on CPAP, and hypothyroidism. Denies fever, chills, shortness of breath, flank pain , nausea, vomiting, or diarrhea. Continues to require Levaphed for blood pressure support Objective: Vital Signs - 8 hr 09/22/18 09/22/18 07:16 08:00 Temperature 97.3 F Pulse Rate 80 Respiratory 16 Rate Blood Pressure 116/76 (mmHg) O2 Sat by Pulse 95 Oximetry Physical Exam: General: NAD, laying in bed Neurological: Alert and Oriented x4 Cardiovascular: Heart Rate regular, no murmur Respiratory: Lung sounds clear bilateral Abdominal: Bowel sounds present, ABD large, soft and non tender Skin: Slight erythema to bilateral LEs from ankles to below knees. The area is not warmer to touch than the rest of the skin Laboratory Last Values WBC 6.6 10^3/uL (3.5-10.8) 09/22/18 06:35 RBC 3.05 10^6 /uL (4.18-5.48) L 09/22/18 06:35 Hgb 9.5 g/dL (14.0-18.0) L 09/22/18 06:35 Hct 29 % (36-46) L 09/22/18 06:35 MCV 95 fL (80-94) H 09/22/18 06:35 MCH 31 pg (27-31) 09/22/18 06:35 MCHC 33 g/dL (31-36) 09/22/18 06:35 RDW 20 % (10.5-15) H 09/22/18 06:35 Plt Count 136 10^3/uL (150-450) L 09/22/18 06:35 MPV 7.7 fL (7.4-10.4) 09/22/18 06:35 Neut % (Auto) 79.6 % 09/22/18 06:35 Lymph % (Auto) 9.7 % 09/22/18 06:35 Yell % (Auto) 6.7 % 09/22/18 06:35 Eos % (Auto) 3.7 % 09/22/18 06:35 Baso % (Auto) 0.3 % 09/22/18 06:35 Absolute Neuts (auto) 5.2 10^3/ul (1.5-7.7) 09/22/18 06:35 Absolute Lymphs (auto) 0.6 10^3/ul (1.0-4.8) L 09/22/18 06:35 Absolute Monos (auto) 0.4 10^3/ul (0-0.8) 09/22/18 06:35 Absolute Eos (auto) 0.2 10^3/ul (0-0.6) 09/22/18 06:35 Absolute Basos (auto) 0 10^3/ul (0-0.2) 09/22/18 06:35 Absolute Nucleated RBC 0 10^3/ul 09/22/18 06:35 Nucleated RBC % 0.1 09/22/18 06:35 ESR 83 mm/Hr (0-19) H 09/21/18 02:36 INR (Anticoag Therapy) 1.25 (0.77-1.02) H 09/21/18 02:36 APTT 62.3 seconds (26.0-36.3) H 09/21/18 02:36 VBG pH 7.47 (7.32-7.43) H 09/21/18 06:15 VBG pCO2 28 mmHg (41-51) L 09/21/18 06:15 VBG pO2 170.0 mmHg (35-45) H 09/21/18 06:15 VBG HCO3 23.3 mmol/L (24-28) L 09/21/18 06:15 VBG O2 Saturation 99.0 % (70-80) H 09/21/18 06:15 VBG Base Excess -2.0 mmol/L (0.0-4.0) L 09/21/18 06:15 Sodium 136 mmol/L (135-145) 09/22/18 06:35 Potassium 4.3 mmol/L (3.5-5.0) 09/22/18 06:35 Chloride 103 mmol/L (101-111) 09/22/18 06:35 Carbon Dioxide 25 mmol/L (22-32) 09/22/18 06:35 Anion Gap 8 mmol/L (2-11) 09/22/18 06:35 BUN 43 mg/dL (6-24) H 09/22/18 06:35 Creatinine 5.86 mg/dL (0.67-1.17) H 09/22/18 06:35 Est GFR ( Amer) 12.0 (>60) 09/22/18 06:35 Est GFR (Non-Af Amer) 9.9 (>60) 09/22/18 06:35 BUN/Creatinine Ratio 7.3 (8-20) L 09/22/18 06:35 Glucose 116 mg/dL (70-100) H 09/22/18 06:35 Lactic Acid 1.9 mmol/L (0.5-2.0) 09/21/18 02:36 Calcium 8.8 mg/dL (8.6-10.3) 09/22/18 06:35 Phosphorus 4.6 mg/dL (2.5-5.0) 09/22/18 06:35 Magnesium 2.2 mg/dL (1.9-2.7) 09/22/18 06:35 Total Bilirubin 0.70 mg/dL (0.2-1.0) 09/21/18 02:36 AST 30 U/L (13-39) 09/21/18 02:36 ALT 36 U/L (7-52) 09/21/18 02:36 Alkaline Phosphatase 131 U/L (34-104) H 09/21/18 02:36 Troponin I 0.01 ng/mL (<0.04) 09/21/18 02:36 C-Reactive Protein 99.80 mg/L (<8.01) H 09/21/18 02:36 B-Natriuretic Peptide 108 pg/mL (<=100) H 09/21/18 02:36 Total Protein 6.4 g/dL (6.4-8.9) 09/21/18 02:36 Albumin 3.3 g/dL (3.2-5.2) 09/21/18 02:36 Globulin 3.1 g/dL (2-4) 09/21/18 02:36 Albumin/Globulin Ratio 1.1 (1-3) 09/21/18 02:36 Urine Color Kim 09/21/18 03:33 Urine Appearance Cloudy 09/21/18 03:33 Urine pH 5.0 (5-9) 09/21/18 03:33 Ur Specific Odin 1.015 (1.010-1.030) 09/21/18 03:33 Urine Protein 2+(100 mg/dl) (Negative) A 09/21/18 03:33 Urine Ketones Trace (Negative) A 09/21/18 03:33 Urine Blood 3+ (Negative) A 09/21/18 03:33 Urine Nitrate Negative (Negative) 09/21/18 03:33 Urine Bilirubin Negative (Negative) 09/21/18 03:33 Urine Urobilinogen Negative (Negative) 09/21/18 03:33 Ur Leukocyte Esterase 2+ (Negative) A 09/21/18 03:33 Urine WBC (Auto) 3+(>20/hpf) (Absent) A 09/21/18 03:33 Urine RBC (Auto) 3+(>10/hpf) (Absent) A 09/21/18 03:33 Ur Squamous Epith Cells Present (Absent) A 09/21/18 03:33 Urine Bacteria Absent (Absent) 09/21/18 03:33 Hyaline Casts Present (Absent) A 09/21/18 03:33 Urine Glucose 1+(50 mg/dl) (Negative) A 09/21/18 03:33 Random Vancomycin 13.5 mcg/mL 09/22/18 08:52 Influenza A (Rapid) Negative (Negative) 09/21/18 03:30 Influenza B (Rapid) Negative (Negative) 09/21/18 03:30 Blood Type O Positive 09/21/18 02:36 Antibody Screen Negative 09/21/18 02:36 Microbiology 09/21/18 03:33 Urine Culture - Final Urine No Growth (<1,000 CFU/mL) 09/21/18 02:45 Aerobic Blood Culture - Preliminary Blood Venous No Growth Day 1 Anaerobic Blood Culture - Preliminary No Growth Day 1 09/21/18 02:36 Aerobic Blood Culture - Preliminary Blood Venous No Growth Day 1 Anaerobic Blood Culture - Preliminary No Growth Day 1 09/21/18 10:10 Nasal Screen MRSA (PCR) - Final Nasal Mrsa Detected Assessment: 1. Fever and malaise. Differential diagnosis: viral illness, dialysis catheter infection, right chest port infection, and UTI. Urine culture with no growth. Blood cultures with no growth to date. Influenza A/B negative. Continues to require blood pressure support. 2. Multiple myeloma. Immunocompromised due to recent chemotherapy 3. Morbid obesity with DALLAS on CAP. 4. ESRD on hemodialysis secondary to multiple myeloma 5. Peripheral neuropathy Plan: Continue Zosyn and vancomycin for a total of 5 days, day 2/5.
[2018-09-22] MEDS: ALPRAZolam TAB* 0.5 MG PO PRN (10:48)
[2018-09-22] MEDS ORDERED: EPOETIN ALFA-EPBX * 10,000 UNIT/ML VIAL IV ONE (11:15)
[2018-09-22] MEDS ORDERED: Mouth Piece, Nicotine* 1 EACH CARTRIDGE INH PRN (11:39)
[2018-09-22] MEDS: Nicotine Inhaler* 10 MG AMP INH PRN (11:57)
[2018-09-22] MEDS ORDERED: Heparin DIALYSIS ONLY(*) 1,000 UNITS/ML VIAL DIALYSIS ONE (12:00)
[2018-09-22] MEDS ORDERED: EPOETIN ALFA-EPBX * 2,000 UNIT/ML VIAL IV ONE (12:00)
--- NOTE | 2018-09-22 13:35 | PN ---
Subjective Date of Service: 09/22/18 Interval History: Patient seen in ICU today, doing well. no acute events. He remains on 1 mcg of levophed. Scheduled for dialysis this afternoon. Lower leg bilateral shows increase erythema (but significantly improved when compared to yesterday). No chest pain or shortness of breath Past Medical History: Unchanged from Admission Objective Active Medications: Acyclovir (Zovirax Cap*) 200 mg PO Q12HR [facility] Last Admin: 09/22/18 08:40 Dose: 200 mg Alprazolam (Xanax Tab*) 0.5 mg PO Q12HR PRN PRN Reason: ANXIETY Last Admin: 09/22/18 10:48 Dose: 0.5 mg Aspirin (Aspirin Ec Tab*) 81 mg PO BEDTIME [facility] Last Admin: 09/21/18 22:02 Dose: 81 mg Cyanocobalamin (Vitamin B12 Tab*) 2,500 mcg PO DAILY [facility] Last Admin: 09/22/18 08:39 Dose: 2,500 mcg Device (Nicotine Mouth Piece*) 1 each INH .USE W/ CARTRIDGE PRN PRN Reason: WITHDRAWAL - NICOTINE Last Admin: 09/22/18 11:57 Dose: 1 each Diphenhydramine HCl (Benadryl Po*) 25 mg PO BID PRN PRN Reason: ITCHING Heparin Sodium (Porcine) (Heparin Vial(*)) 5,000 units SUBCUT Q8HR [facility] Last Admin: 09/22/18 06:46 Dose: 5,000 units Norepinephrine Bitartrate (Levophed 16 Mcg/Ml Premix Bag*) 4,000 mcg in 250 mls @ 37.5 mls/hr IV .INITIAL RATE [facility] Last Admin: 09/21/18 13:23 Dose: 22.5 mls/hr Sodium Chloride (Ns 0.9% 1000 Ml) 1,000 mls @ 250 mls/hr IV PER RATE [facility] Last Admin: 09/21/18 08:27 Dose: 250 mls/hr Piperacillin Sod/Tazobactam (Sod 3.375 gm/ Sodium Chloride) 100 mls @ 25 mls/ hr IVPB Q12H [facility] Last Admin: 09/22/18 10:33 Dose: 25 mls/hr Vancomycin HCl 1,500 mg/ (Sodium Chloride) 250 mls @ 166.667 mls/hr IVPB ONCE ONE Stop: 09/22/18 15:29 Levothyroxine Sodium (Synthroid Tab*) 50 mcg PO DAILY@0600 [facility] Last Admin: 09/22/18 06:47 Dose: 50 mcg Magnesium Oxide (Magox 400 Tab*) 400 mg PO DAILY [facility] Last Admin: 09/22/18 08:40 Dose: 400 mg Nicotine (Nicotine Inhaler*) 10 mg INH Q2H PRN PRN Reason: CRAVING Last Admin: 09/22/18 11:57 Dose: 10 mg Pharmacy Consult (Vancomycin Per Pharmacy*) 1 note FOLLOW UP .VANC PER PHARMACY [facility] Pharmacy Consult (Zosyn Per Pharmacy*) 1 note FOLLOW UP .ZOSYN PER PHARMACY [facility] Polyethylene Glycol/Electrolytes (Miralax*) 17 gm PO DAILY PRN PRN Reason: CONSTIPATION Pramipexole Dihydrochloride (Mirapex Tab*) 1 mg PO BEDTIME [facility] Last Admin: 09/21/18 23:43 Dose: 1 mg Senna (Senokot Tab*) 1 tab PO DAILY PRN PRN Reason: CONSTIPATION Tramadol HCl (Ultram*) 50 mg PO BID [facility] Last Admin: 09/22/18 08:40 Dose: 50 mg Vital Signs - 8 hr 09/22/18 09/22/18 09/22/18 05:46 06:01 06:02 Temperature Pulse Rate 81 87 85 Respiratory 16 23 16 Rate Blood Pressure 116/55 96/54 (mmHg) O2 Sat by Pulse 95 94 96 Oximetry 09/22/18 09/22/18 09/22/18 06:16 06:31 06:46 Temperature Pulse Rate 82 85 88 Respiratory 17 19 14 Rate Blood Pressure 114/68 107/58 131/80 (mmHg) O2 Sat by Pulse 96 96 95 Oximetry 09/22/18 09/22/18 09/22/18 07:00 07:01 07:16 Temperature Pulse Rate 80 80 Respiratory 16 15 16 Rate Blood Pressure 139/73 116/76 (mmHg) O2 Sat by Pulse 95 95 Oximetry 09/22/18 09/22/18 09/22/18 07:31 07:46 08:00 Temperature 97.3 F Pulse Rate 78 79 Respiratory 13 19 Rate Blood Pressure 122/80 116/70 (mmHg) O2 Sat by Pulse 96 96 Oximetry 09/22/18 09/22/18 09/22/18 08:01 08:16 08:31 Temperature Pulse Rate 86 82 83 Respiratory 18 14 15 Rate Blood Pressure 130/65 107/58 98/63 (mmHg) O2 Sat by Pulse 96 96 91 Oximetry 09/22/18 09/22/18 09/22/18 08:46 09:00 09:01 Temperature Pulse Rate 90 90 91 Respiratory 21 20 23 Rate Blood Pressure 86/41 108/49 (mmHg) O2 Sat by Pulse 97 96 96 Oximetry 09/22/18 09/22/18 09/22/18 09:16 09:31 09:46 Temperature Pulse Rate 94 86 87 Respiratory 20 14 15 Rate Blood Pressure 114/60 100/60 86/57 (mmHg) O2 Sat by Pulse 97 94 96 Oximetry 09/22/18 09/22/18 09/22/18 09:48 10:00 10:01 Temperature Pulse Rate 90 89 87 Respiratory 13 13 14 Rate Blood Pressure 89/57 117/61 (mmHg) O2 Sat by Pulse 93 97 96 Oximetry 09/22/18 09/22/18 09/22/18 10:31 10:46 10:48 Temperature Pulse Rate 85 83 Respiratory 14 15 97 Rate Blood Pressure 111/72 108/66 (mmHg) O2 Sat by Pulse 96 97 Oximetry Oxygen Devices in Use Now: None Appearance: Obese, alert, awake. comfortable. mentating well. tolerating diet well Eyes: No Scleral Icterus, - - EOMI Ears/Nose/Mouth/Throat: NL Teeth, Lips, Gums, Clear Oropharnyx, Mucous Membranes Moist Neck: NL Appearance and Movements; NL JVP, Trachea Midline Respiratory: Symmetrical Chest Expansion and Respiratory Effort, Clear to Auscultation Cardiovascular: NL Sounds; No Murmurs; No JVD, - - + 2 edema, erythema bilateral Abdominal: NL Sounds; No Tenderness; No Distention, - - Obese. soft non tender Extremities: - - Edema, bilateral +2 and erthema. less when compared to yesterday and less warm Result Diagrams: 09/22/18 06:35 09/22/18 06:35 Microbiology and Other Data: Microbiology 09/21/18 10:10 Nasal Screen MRSA (PCR) - Final Nasal Mrsa Detected Assess/Plan/Problems-Billing Assessment: 58 year old male admitted for fever and hypotension consistent with sepsis secondary to pyelonephritis. - Patient Problems (1) Sepsis associated hypotension Current Visit: Yes Status: Acute Code(s): A41.9 - SEPSIS, UNSPECIFIED ORGANISM; I95.9 - HYPOTENSION, UNSPECIFIED SNOMED Code(s): 90202623 Comment: - Etiology most likely due to pyelonephritis versus his bilateral cellulitis. - His UA positive UA and CT scan finding of pyelonephritis. Awaiting his final blood and urine cultures. - ID consulted, recommendations pending, Will continue wide spectrum antibiotics with Zosyn Day # 2 and Vanco Day # 2 (MRSA screen positive) pending final culture. - I asked Dialysis to culture his dialysis catheter in am during dialysis (2) Pyelonephritis, acute Current Visit: Yes Status: Acute Code(s): N10 - ACUTE PYELONEPHRITIS SNOMED Code(s): 27000911 Comment: - His UA positive UA and CT scan finding of pyelonephritis. Awaiting his final blood and urine cultures. - ID consulted, recommendations pending, Will continue wide spectrum antibiotics with Zosyn Day # 2 and Vanco Day # 2 (MRSA screen positive) pending final culture. - I asked Dialysis to culture his dialysis catheter in am during dialysis (3) Cellulitis Current Visit: Yes Status: Acute Code(s): L03.90 - CELLULITIS, UNSPECIFIED SNOMED Code(s): 160804038 Comment: - Bilateral erythema of both legs. Patient himself states that the erythema not something new. - However, his erythema and warmth has significantly subsided when compared to yesterday. Whether it is simply from being sitting in bed and leg elevated or improved with the antibiotics is hard to tell. However; from clinical ground, I suspect it is cellulitis as it has improved with antibiotics and and warmth resolved. Will maintain him on the antibiotics for his sepsis for now without any changes pending his blood cultures (4) Multiple myeloma Current Visit: Yes Status: Acute Code(s): C90.00 - MULTIPLE MYELOMA NOT HAVING ACHIEVED REMISSION SNOMED Code(s): 441305100 Comment: - Outpatient chemo - Follow up daily CBC and chemistry, Ca+ (5) ESRD (end stage renal disease) on dialysis Current Visit: Yes Status: Acute Code(s): N18.6 - END STAGE RENAL DISEASE; Z99.2 - DEPENDENCE ON RENAL DIALYSIS SNOMED Code(s): 224484938 Comment: - Notified sr. social media & mobile manager digital solution architect and will add him to the schedule for am - I requested to have the blood culture during dialysis in am (6) DALLAS (obstructive sleep apnea) Current Visit: Yes Status: Acute Code(s): G47.33 - OBSTRUCTIVE SLEEP APNEA ( ADULT) (PEDIATRIC) SNOMED Code(s): 90551151 Comment: - May use his own CPAP (7) PTSD (post-traumatic stress disorder) Current Visit: Yes Status: Acute Code(s): F43.10 - POST-TRAUMATIC STRESS DISORDER, UNSPECIFIED SNOMED Code(s): 89133903 Comment: - PRN Xanax (8) Hypothyroid Current Visit: Yes Status: Acute Code(s): E03.9 - HYPOTHYROIDISM, UNSPECIFIED SNOMED Code(s): 38528697 Comment: - Continue levoxyl 50 mcg daily (9) Pericardial effusion Current Visit: Yes Status: Acute Code(s): I31.3 - PERICARDIAL EFFUSION ( NONINFLAMMATORY) SNOMED Code(s): 469359149 Comment: - S/p pericardial window 2-3 weeks ago at [facility] (requested discharge summary) - Echo done today 09/21/18 did not show evidence of tamponade, but did confirm the presence of moderate effusion - I repeated echo, no sign of hypotension and/or cardiac decompensations. (10) DVT prophylaxis Current Visit: Yes Status: Acute Code(s): VTT4412 - SNOMED Code(s): 909398347 Comment: - Heparin 5000 Q 8 hrs
[2018-09-22] MEDS ORDERED: Vancomycin(*) 1,500 MG in NS 0.9% 250 ML* 250 ML IVPB ONE (14:00)
[2018-09-22 14:01] LABS: TSH (Thyroid Stimulating Horm) 2.37 mcIU/mL (0.34-5.60)
[2018-09-22] MEDS: Pramipexole TAB* 0.5 MG PO SCH (20:00)
[2018-09-22] MEDS: Aspirin EC TAB* 81 MG TAB.EC PO SCH (20:01)
--- NOTE | 2018-09-23 00:12 | PN ---
DIALYSIS NOTE: DATE OF DIALYSIS: 09/22/18 HISTORY: The patient seen and examined at bedside and dialysis orders discussed with the HD nurse. The patient recently had pericardial effusion, status post pericardial window at [facility]. The patient did not have any tamponade physiology, also had an episode of pericarditis then. T he patient also reports a history of rigors during dialysis. Echocardiogram was repeated by the [facility] medical team that did not show evidence of tamponade, but did confirm presence of moderate effusi on. PHYSICAL EXAM: HEENT: NCAT. Heart: S1, S2 present. Regular at time of exam. Lungs: Decreased br eath sounds bilaterally. No crackles. Abdomen: Soft, nontender. No rebound, no guarding. Extremi ties: Noted to have 2+ edema and bilateral erythema. ASSESSMENT AND PLAN: 1. Acute/subacute kidney injury and renal failure in the setting of multiple myeloma. The patient h as been on dialysis for 4 weeks now. The patient reports that he has had a complicated few weeks rec ently, was at the [facility] for pericarditis and pericardial effusion, status post sunny cardial window. 2. The patient's blood pressure was noted to be low when he initially came in, was having fevers, ch ills, and the patient noted to have pyelonephritis and cellulitis, for which he is being treated by [facility] primary team. Further management per the primary team. 3. The patient follows up with his hazardous substances engineer at [place] and oncologist at [facility], and also has an oncologist in [place]. In light of this, dialysis orders from his outpatient unit has be en reviewed and HD orders have been discontinued with the dialysis nurse. We will plan for 1 L of UF today. Based on his blood pressure, can increase this further as his infection improves and his hyp otension improves and we will also watch carefully in the setting of pericardial effusion. On review of notes from [facility], at that time, his pericardial effusion and pericarditis was t hought to be not related to uremic pericarditis but other idiopathic pericarditis. As he has had ext ended workup at [place], will leave further management there. 4. The patient at this time reports feeling significantly better since he came to the hospital with antibiotics for his pyelonephritis an d cellulitis. We will continue routine dialysis during his hospitalization. The patient is tolerati ng his dialysis well with no problems currently. [id number]/[facility] #: [id number]
[2018-09-23] MEDS: Heparin VIAL(*) 5000 UNITS/ML VIAL (FIVE THOUSAND) SUBCUT SCH ×3 (06:12→21:55)
[2018-09-23] MEDS: Levothyroxine TAB* 50 MCG TAB PO SCH (06:12)
[2018-09-23 06:53] LABS: ABS Basophils 0 10^3/ul (0-0.2); ABS Eosinophils 0.1 10^3/ul (0-0.6); ABS Lymphocytes 0.6 10^3/ul (1.0-4.8); ABS Monocytes 0.3 10^3/ul (0-0.8); ABS Neutrophils 4.6 10^3/ul (1.5-7.7); ABS Nucleated RBC 0 10^3/ul; Eosinophil % 2.7 %; Hematocrit 29 % (36-46); Hemoglobin 9.4 g/dL (14.0-18.0); Lymphocyte % 10.5 %; Mean Corpuscular HGB Conc 33 g/dL (31-36); Mean Corpuscular Hemoglobin 31 pg (27-31); Mean Corpuscular Volume 95 fL (80-94); Mean Platelet Volume 7.9 fL (7.4-10.4); Nucleated Red Blood Cells % 0.1; Platelet Count 141 10^3/uL (150-450); Red Blood Count 3.02 10^6 /uL (4.18-5.48); Red Cell Distribution Width 19 % (10.5-15); White Blood Count 5.6 10^3/uL (3.5-10.8)
[2018-09-23 06:55] LABS: BUN/Creatinine Ratio 6.5 (8-20); Calcium 8.7 mg/dL (8.6-10.3); EGFR African American 16.4 (>60); EGFR Non-African American 13.6 (>60); Magnesium 2.1 mg/dL (1.9-2.7); Potassium 4.1 mmol/L (3.5-5.0)
[2018-09-23] MEDS: ALPRAZolam TAB* 0.5 MG PO PRN (09:01)
[2018-09-23] MEDS: traMADol TAB* 50 MG PO SCH ×2 (09:01→23:34)
[2018-09-23] MEDS: Cyanocobalamin TAB* 500 MCG PO SCH (09:01)
[2018-09-23] MEDS: Magnesium Oxide TAB* 400 MG PO SCH (09:01)
[2018-09-23] MEDS: Acyclovir* 200 MG CAP PO SCH ×2 (09:01→21:54)
--- NOTE | 2018-09-23 10:45 | PN ---
Subjective Date of Service: 09/23/18 Interval History: Patient seen this morning in ICU. doing well. Tolerated his Dialysis session well but he did express that he did have left shoulder pain during dialysis. no fever or chills. BC no growth. Off levophed, BP ranging 90's to low 100's asymptomatic. Past Medical History: Unchanged from Admission Objective Active Medications: Acyclovir (Zovirax Cap*) 200 mg PO Q12HR [facility] Last Admin: 09/23/18 09:01 Dose: 200 mg Alprazolam (Xanax Tab*) 0.5 mg PO Q12HR PRN PRN Reason: ANXIETY Last Admin: 09/23/18 09:01 Dose: 0.5 mg Aspirin (Aspirin Ec Tab*) 81 mg PO BEDTIME [facility] Last Admin: 09/22/18 20:01 Dose: 81 mg Cyanocobalamin (Vitamin B12 Tab*) 2,500 mcg PO DAILY [facility] Last Admin: 09/23/18 09:01 Dose: 2,500 mcg Device (Nicotine Mouth Piece*) 1 each INH .USE W/ CARTRIDGE PRN PRN Reason: WITHDRAWAL - NICOTINE Last Admin: 09/22/18 11:57 Dose: 1 each Diphenhydramine HCl (Benadryl Po*) 25 mg PO BID PRN PRN Reason: ITCHING Heparin Sodium (Porcine) (Heparin Vial(*)) 5,000 units SUBCUT Q8HR [facility] Last Admin: 09/23/18 06:12 Dose: 5,000 units Piperacillin Sod/Tazobactam (Sod 3.375 gm/ Sodium Chloride) 100 mls @ 25 mls/ hr IVPB Q12H [facility] Last Admin: 09/22/18 22:52 Dose: 25 mls/hr Levothyroxine Sodium (Synthroid Tab*) 50 mcg PO DAILY@0600 [facility] Last Admin: 09/23/18 06:12 Dose: 50 mcg Magnesium Oxide (Magox 400 Tab*) 400 mg PO DAILY [facility] Last Admin: 09/23/18 09:01 Dose: 400 mg Nicotine (Nicotine Inhaler*) 10 mg INH Q2H PRN PRN Reason: CRAVING Last Admin: 09/22/18 11:57 Dose: 10 mg Pharmacy Consult (Vancomycin Per Pharmacy*) 1 note FOLLOW UP .VANC PER PHARMACY [facility] Pharmacy Consult (Zosyn Per Pharmacy*) 1 note FOLLOW UP .ZOSYN PER PHARMACY [facility] Pharmacy Consult (Vancomycin Random Level*) 1 note FOLLOW UP ONCE ONE Stop: 09/25/18 06:01 Polyethylene Glycol/Electrolytes (Miralax*) 17 gm PO DAILY PRN PRN Reason: CONSTIPATION Pramipexole Dihydrochloride (Mirapex Tab*) 1 mg PO BEDTIME [facility] Last Admin: 09/22/18 20:00 Dose: 1 mg Senna (Senokot Tab*) 1 tab PO DAILY PRN PRN Reason: CONSTIPATION Tramadol HCl (Ultram*) 50 mg PO BID [facility] Last Admin: 09/23/18 09:01 Dose: Not Given Vital Signs - 8 hr 09/23/18 09/23/18 09/23/18 02:46 02:56 03:00 Temperature Pulse Rate 82 81 Respiratory 20 18 17 Rate Blood Pressure 116/59 (mmHg) O2 Sat by Pulse 96 94 Oximetry 09/23/18 09/23/18 09/23/18 03:01 03:15 03:30 Temperature Pulse Rate 82 83 79 Respiratory 18 19 17 Rate Blood Pressure 94/65 105/62 113/69 (mmHg) O2 Sat by Pulse 94 95 97 Oximetry 09/23/18 09/23/18 09/23/18 03:46 03:51 04:00 Temperature 98.0 F Pulse Rate 83 81 Respiratory 30 14 Rate Blood Pressure 93/60 109/57 (mmHg) O2 Sat by Pulse 94 94 Oximetry 09/23/18 09/23/18 09/23/18 04:02 04:16 04:31 Temperature Pulse Rate 79 84 82 Respiratory 14 17 16 Rate Blood Pressure 119/70 109/70 (mmHg) O2 Sat by Pulse 95 92 96 Oximetry 09/23/18 09/23/18 09/23/18 04:45 05:00 05:01 Temperature Pulse Rate 80 82 78 Respiratory 15 18 15 Rate Blood Pressure 105/67 108/66 (mmHg) O2 Sat by Pulse 95 95 99 Oximetry 09/23/18 09/23/18 09/23/18 05:15 05:30 05:46 Temperature Pulse Rate 87 71 75 Respiratory 16 15 19 Rate Blood Pressure 103/62 113/62 123/58 (mmHg) O2 Sat by Pulse 97 91 87 Oximetry 09/23/18 09/23/18 09/23/18 06:00 06:01 06:16 Temperature Pulse Rate 83 90 Respiratory 15 15 18 Rate Blood Pressure 93/67 141/67 (mmHg) O2 Sat by Pulse 93 95 Oximetry 09/23/18 09/23/18 09/23/18 06:31 06:46 07:00 Temperature Pulse Rate 93 87 90 Respiratory 17 16 23 Rate Blood Pressure 109/58 99/62 121/63 (mmHg) O2 Sat by Pulse 93 95 92 Oximetry 09/23/18 09/23/18 09/23/18 07:01 07:16 07:31 Temperature Pulse Rate 95 90 88 Respiratory 21 19 16 Rate Blood Pressure 128/63 105/68 (mmHg) O2 Sat by Pulse 95 93 90 Oximetry 09/23/18 09/23/18 09/23/18 07:46 07:50 08:00 Temperature 97.1 F Pulse Rate 87 87 Respiratory 13 20 Rate Blood Pressure 124/63 (mmHg) O2 Sat by Pulse 95 95 Oximetry 09/23/18 09/23/18 09/23/18 08:01 08:16 08:36 Temperature Pulse Rate 91 88 Respiratory 22 20 18 Rate Blood Pressure 109/57 124/63 (mmHg) O2 Sat by Pulse 94 93 Oximetry 09/23/18 09/23/18 09/23/18 09:00 09:01 09:15 Temperature Pulse Rate 107 98 102 Respiratory 21 25 26 Rate Blood Pressure 98/68 104/63 (mmHg) O2 Sat by Pulse 95 95 93 Oximetry 09/23/18 09/23/18 09/23/18 09:25 09:31 09:46 Temperature Pulse Rate 100 101 Respiratory 18 17 22 Rate Blood Pressure 103/61 93/53 (mmHg) O2 Sat by Pulse 95 94 Oximetry 09/23/18 10:00 Temperature Pulse Rate 98 Respiratory 19 Rate Blood Pressure (mmHg) O2 Sat by Pulse 95 Oximetry Oxygen Devices in Use Now: None Appearance: Awake, alert. no acut distress. sitting in chair. Eyes: No Scleral Icterus, - - EOMI Ears/Nose/Mouth/Throat: NL Teeth, Lips, Gums, Mucous Membranes Moist Neck: NL Appearance and Movements; NL JVP, Trachea Midline Respiratory: Symmetrical Chest Expansion and Respiratory Effort, Clear to Auscultation Cardiovascular: NL Sounds; No Murmurs; No JVD, RRR, - - [place] Abdominal: NL Sounds; No Tenderness; No Distention, - - Obese Extremities: No Edema Skin: - - lower extremeties edema, improved erythema, however he does venous stasis skin changes when sitting in chair but much improved when leg elevated. When leg elevated his erythema is much better when compared to admissions Neurological: Alert and Oriented x 3 Result Diagrams: 09/23/18 06:30 09/23/18 06:30 Microbiology and Other Data: Microbiology 09/21/18 10:10 Nasal Screen MRSA (PCR) - Final Nasal Mrsa Detected Assess/Plan/Problems-Billing Assessment: 58 year old male admitted for fever and hypotension consistent with sepsis secondary to pyelonephritis. - Patient Problems (1) Sepsis associated hypotension Current Visit: Yes Status: Acute Code(s): A41.9 - SEPSIS, UNSPECIFIED ORGANISM; I95.9 - HYPOTENSION, UNSPECIFIED SNOMED Code(s): 75452590 Comment: - Etiology most likely due to pyelonephritis versus his bilateral cellulitis. - His UA positive UA and CT scan finding of pyelonephritis. Awaiting his final blood and urine cultures. - ID consulted, recommendations pending, Will continue wide spectrum antibiotics with Zosyn Day # 3 and Vanco Day # 3 (MRSA screen positive) pending final culture. - I asked Dialysis to culture his dialysis catheter, done on tuesday09/22/18. BC from his dialysis catheter is pending. (2) Pyelonephritis, acute Current Visit: Yes Status: Acute Code(s): N10 - ACUTE PYELONEPHRITIS SNOMED Code(s): 95181060 Comment: - His UA positive UA and CT scan finding of pyelonephritis. Awaiting his final blood and urine cultures. - ID consulted, recommendations pending, Will continue wide spectrum antibiotics with Zosyn Day # 3 and Vanco Day # 3 (MRSA screen positive) pending final culture. - I asked Dialysis to culture his dialysis catheter, done on tuesday09/22/18. BC from his dialysis catheter is pending. (3) Cellulitis Current Visit: Yes Status: Acute Code(s): L03.90 - CELLULITIS, UNSPECIFIED SNOMED Code(s): 485042283 Comment: - Bilateral erythema of both legs. Patient himself states that the erythema not something new. however he is confusing it with venous stasis. Please make note that the patient did have erythema and warmth has significantly subsided when compared to admission. What he has now is venous stasis which are not the same and the patient was educated how to distinguis the two. - I explained that if his leg are red (not purple) warm to touch with fever/ chills he should seek medical attention and not presume it was simply due to venous stasis. 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 - He was complaining of shoulder pain during dialysis same site as the catheter , which probably due to shunting during dialysis session. I asked nephrology to assess if the catheter is functioning well during the session (6) D[place] (obstructive sleep apnea) Current Visit: Yes Status: Acute Code(s): G47.33 - OBSTRUCTIVE SLEEP APNEA ( ADULT) (PEDIATRIC) SNOMED Code(s): 01647978 Comment: - May use his own CPAP (7) PTSD (post-traumatic stress disorder) Current Visit: Yes Status: Acute Code(s): F43.10 - POST-TRAUMATIC STRESS DISORDER, UNSPECIFIED SNOMED Code(s): 47027249 Comment: - PRN Xanax (8) Hypothyroid Current Visit: Yes Status: Acute Code(s): E03.9 - HYPOTHYROIDISM, UNSPECIFIED SNOMED Code(s): 26126167 Comment: - Continue levoxyl 50 mcg daily (9) Pericardial effusion Current Visit: Yes Status: Acute Code(s): I31.3 - PERICARDIAL EFFUSION ( NONINFLAMMATORY) SNOMED Code(s): 117367184 Comment: - S/p pericardial window 2-3 weeks ago at [facility] (requested discharge summary) - Echo done today 09/21/18 did not show evidence of tamponade, but did confirm the presence of moderate effusion - I repeated echo, no sign of hypotension and/or cardiac decompensations. (10) DVT prophylaxis Current Visit: Yes Status: Acute Code(s): WLK8751 - SNOMED Code(s): 181341829 Comment: - Heparin 5000 Q 8 hrs
[2018-09-23] MEDS: ZOSYN 3.375 GM Q12H per EXTENDED INFUSION IVPB SCH ×4 (10:53→21:56)
[2018-09-23] MEDS: Nicotine Inhaler* 10 MG AMP INH PRN (14:18)
[2018-09-23] MEDS: Pramipexole TAB* 0.5 MG PO SCH (21:54)
[2018-09-23] MEDS: Aspirin EC TAB* 81 MG TAB.EC PO SCH (21:54)
[2018-09-24] MEDS: Heparin VIAL(*) 5000 UNITS/ML VIAL (FIVE THOUSAND) SUBCUT SCH ×3 (05:29→21:23)
[2018-09-24] MEDS: Levothyroxine TAB* 50 MCG TAB PO SCH (05:29)
[2018-09-24 05:54] LABS: ABS Basophils 0 10^3/ul (0-0.2); ABS Eosinophils 0.1 10^3/ul (0-0.6); ABS Lymphocytes 0.5 10^3/ul (1.0-4.8); ABS Monocytes 0.2 10^3/ul (0-0.8); ABS Neutrophils 4.1 10^3/ul (1.5-7.7); ABS Nucleated RBC 0 10^3/ul; Eosinophil % 2.3 %; Hematocrit 30 % (36-46); Hemoglobin 9.7 g/dL (14.0-18.0); Lymphocyte % 10.2 %; Mean Corpuscular HGB Conc 33 g/dL (31-36); Mean Corpuscular Hemoglobin 31 pg (27-31); Mean Corpuscular Volume 95 fL (80-94); Mean Platelet Volume 6.9 fL (7.4-10.4); Nucleated Red Blood Cells % 0.1; Platelet Count 169 10^3/uL (150-450); Red Blood Count 3.12 10^6 /uL (4.18-5.48); Red Cell Distribution Width 19 % (10.5-15); White Blood Count 4.9 10^3/uL (3.5-10.8)
[2018-09-24 06:10] LABS: BUN/Creatinine Ratio 6.9 (8-20); Calcium 9.1 mg/dL (8.6-10.3); EGFR African American 12.9 (>60); EGFR Non-African American 10.7 (>60); Magnesium 2.2 mg/dL (1.9-2.7); Phosphorus 4.1 mg/dL (2.5-5.0); Potassium 4.4 mmol/L (3.5-5.0)
[2018-09-24] MEDS: Nicotine Inhaler* 10 MG AMP INH PRN (09:46)
[2018-09-24] MEDS: Cyanocobalamin TAB* 500 MCG PO SCH (09:47)
[2018-09-24] MEDS: Magnesium Oxide TAB* 400 MG PO SCH (09:48)
[2018-09-24] MEDS: Acyclovir* 200 MG CAP PO SCH ×2 (09:56→21:21)
[2018-09-24] MEDS: traMADol TAB* 50 MG PO SCH ×2 (09:57→23:43)
[2018-09-24] MEDS: ZOSYN 3.375 GM Q12H per EXTENDED INFUSION IVPB SCH ×4 (10:04→21:24)
--- NOTE | 2018-09-24 12:09 | PN ---
Subjective Date of Service: 09/24/18 Interval History: Patient seen today report of Dysuria and increase in leg erythema. He did have both Zosyn routine as per renal dose and Vanco at 5 pm on Tuesday post dialysis ( 1500mg x1)! otherwise his WBC and Temp remains normal. probably his Vanco trough level is low now that he is 2 days post dose, however will keep his antibiotics as scheduled. If he develops fever will culture him again. No acute intervention ast this time. he is in bed, comfortable no distress Past Medical History: Unchanged from Admission Objective Active Medications: Acyclovir (Zovirax Cap*) 200 mg PO Q12HR [facility] Last Admin: 09/24/18 09:56 Dose: 200 mg Alprazolam (Xanax Tab*) 0.5 mg PO Q12HR PRN PRN Reason: ANXIETY Last Admin: 09/23/18 09:01 Dose: 0.5 mg Aspirin (Aspirin Ec Tab*) 81 mg PO BEDTIME [facility] Last Admin: 09/23/18 21:54 Dose: 81 mg Cyanocobalamin (Vitamin B12 Tab*) 2,500 mcg PO DAILY [facility] Last Admin: 09/24/18 09:47 Dose: 2,500 mcg Device (Nicotine Mouth Piece*) 1 each INH .USE W/ CARTRIDGE PRN PRN Reason: WITHDRAWAL - NICOTINE Last Admin: 09/22/18 11:57 Dose: 1 each Diphenhydramine HCl (Benadryl Po*) 25 mg PO BID PRN PRN Reason: ITCHING Heparin Sodium (Porcine) (Heparin Vial(*)) 5,000 units SUBCUT Q8HR [facility] Last Admin: 09/24/18 05:29 Dose: 5,000 units Heparin Sodium (Porcine) (Heparin Flush Port (Ivad)) 5 ml FLUSH DAILY [facility]; Protocol Last Admin: 09/24/18 05:29 Dose: 5 ml Piperacillin Sod/Tazobactam (Sod 3.375 gm/ Sodium Chloride) 100 mls @ 25 mls/ hr IVPB Q12H [facility] Last Admin: 09/24/18 10:04 Dose: 25 mls/hr Levothyroxine Sodium (Synthroid Tab*) 50 mcg PO DAILY@0600 [facility] Last Admin: 09/24/18 05:29 Dose: 50 mcg Magnesium Oxide (Magox 400 Tab*) 400 mg PO DAILY [facility] Last Admin: 09/24/18 09:48 Dose: 400 mg Nicotine (Nicotine Inhaler*) 10 mg INH Q2H PRN PRN Reason: CRAVING Last Admin: 09/24/18 09:46 Dose: 10 mg Pharmacy Consult (Vancomycin Per Pharmacy*) 1 note FOLLOW UP .VANC PER PHARMACY [facility] Pharmacy Consult (Zosyn Per Pharmacy*) 1 note FOLLOW UP .ZOSYN PER PHARMACY [facility] Pharmacy Consult (Vancomycin Random Level*) 1 note FOLLOW UP ONCE ONE Stop: 09/25/18 06:01 Polyethylene Glycol/Electrolytes (Miralax*) 17 gm PO DAILY PRN PRN Reason: CONSTIPATION Pramipexole Dihydrochloride (Mirapex Tab*) 1 mg PO BEDTIME [facility] Last Admin: 09/23/18 21:54 Dose: 1 mg Senna (Senokot Tab*) 1 tab PO DAILY PRN PRN Reason: CONSTIPATION Tramadol HCl (Ultram*) 50 mg PO BID [facility] Last Admin: 09/24/18 09:57 Dose: 50 mg Vital Signs - 8 hr 09/24/18 09/24/18 07:15 09:57 Temperature 98.8 F Pulse Rate 97 Respiratory 16 16 Rate Blood Pressure 102/45 (mmHg) O2 Sat by Pulse 96 Oximetry Oxygen Devices in Use Now: None Appearance: resting comfortable, no acute events Eyes: No Scleral Icterus, - - EOMI Ears/Nose/Mouth/Throat: NL Teeth, Lips, Gums, Mucous Membranes Moist Neck: NL Appearance and Movements; NL JVP Respiratory: Symmetrical Chest Expansion and Respiratory Effort, Clear to Auscultation Cardiovascular: NL Sounds; No Murmurs; No JVD, RRR, No Edema Abdominal: NL Sounds; No Tenderness; No Distention Extremities: No Edema Skin: - - lower extremity erythema, not warm. no tenderness Result Diagrams: 09/24/18 05:35 09/24/18 05:35 Microbiology and Other Data: Microbiology 09/21/18 10:10 Nasal Screen MRSA (PCR) - Final Nasal Mrsa Detected Assess/Plan/Problems-Billing Assessment: 58 year old male admitted for fever and hypotension consistent with sepsis secondary to pyelonephritis. - Patient Problems (1) Sepsis associated hypotension Current Visit: Yes Status: Acute Code(s): A41.9 - SEPSIS, UNSPECIFIED ORGANISM; I95.9 - HYPOTENSION, UNSPECIFIED SNOMED Code(s): 52506484 Comment: - Etiology most likely due to pyelonephritis versus his bilateral cellulitis. - His UA positive UA and CT scan finding of pyelonephritis. Awaiting his final blood and urine cultures. - ID consulted, recommendations pending, Will continue wide spectrum antibiotics with Zosyn Day # 4 and Vanco Day # 4 (MRSA screen positive) pending final culture. - I asked Dialysis to culture his dialysis catheter, done on tuesday09/22/18. BC from his dialysis catheter is pending. (2) Pyelonephritis, acute Current Visit: Yes Status: Acute Code(s): N10 - ACUTE PYELONEPHRITIS SNOMED Code(s): 97527304 Comment: - His UA positive UA and CT scan finding of pyelonephritis. Awaiting his final blood and urine cultures. - ID consulted, recommendations pending, Will continue wide spectrum antibiotics with Zosyn Day # 3 and Vanco Day # 3 (MRSA screen positive) pending final culture. - I asked Dialysis to culture his dialysis catheter, done on tuesday09/22/18. BC from his dialysis catheter is pending. - Given his dysuria this morning, will reculture his urine. if he spikes fever will reculture blood. (3) Cellulitis Current Visit: Yes Status: Acute Code(s): L03.90 - CELLULITIS, UNSPECIFIED SNOMED Code(s): 727855744 Comment: - Bilateral erythema of both legs. Patient himself states that the erythema is not something new. However he is confusing it with venous stasis. (Please make note that the patient did have erythema and warmth on admission which has significantly subsided when compared to admission). What he has now is venous stasis which are not the same, and the patient was educated how to distinguis the two. - I explained that if his leg are red (not purple) warm to touch with fever/ chills he should seek medical attention and not presume it was simply due to venous stasis. - It has improved from his antibiotics for his sepsis for now (4) Multiple myeloma Current Visit: Yes Status: Acute Code(s): C90.00 - MULTIPLE MYELOMA NOT HAVING ACHIEVED REMISSION SNOMED Code(s): 954930161 Comment: - Outpatient chemo - Follow up daily CBC and chemistry, Ca+ (5) ESRD (end stage renal disease) on dialysis Current Visit: Yes Status: Acute Code(s): N18.6 - END STAGE RENAL DISEASE; Z99.2 - DEPENDENCE ON RENAL DIALYSIS SNOMED Code(s): 887041056 Comment: - Blood culture during dialysis on tuesday09/22/18 done awaiting result. - He was complaining of shoulder pain during dialysis same site as the catheter , which probably due to shunting during dialysis session. I asked nephrology to assess if the catheter is functioning well during the session (6) [place] (obstructive sleep apnea) Current Visit: Yes Status: Acute Code(s): G47.33 - OBSTRUCTIVE SLEEP APNEA ( ADULT) (PEDIATRIC) SNOMED Code(s): 57607039 Comment: - May use his own CPAP (7) PTSD (post-traumatic stress disorder) Current Visit: Yes Status: Acute Code(s): F43.10 - POST-TRAUMATIC STRESS DISORDER, UNSPECIFIED SNOMED Code(s): 40636937 Comment: - PRN Xanax (8) Hypothyroid Current Visit: Yes Status: Acute Code(s): E03.9 - HYPOTHYROIDISM, UNSPECIFIED SNOMED Code(s): 45248577 Comment: - Continue levoxyl 50 mcg daily (9) Pericardial effusion Current Visit: Yes Status: Acute Code(s): I31.3 - PERICARDIAL EFFUSION ( NONINFLAMMATORY) SNOMED Code(s): 801061378 Comment: - S/p pericardial window 2-3 weeks ago at [facility] [place] (requested discharge summary) - Echo done today 09/21/18 did not show evidence of tamponade, but did confirm the presence of moderate effusion - I repeated echo, no sign of hypotension and/or cardiac decompensations. (10) DVT prophylaxis Current Visit: Yes Status: Acute Code(s): TPT3597 - SNOMED Code(s): 302807618 Comment: - Heparin 5000 Q 8 hrs
[2018-09-24] MEDS ORDERED: Benzocaine/Menthol LOZ* 1 LOZENGE PO PRN (20:27)
[2018-09-24] MEDS: Aspirin EC TAB* 81 MG TAB.EC PO SCH (21:21)
[2018-09-24] MEDS: Acetaminophen TAB* 325 MG PO PRN ×2 (21:21→23:42)
[2018-09-24] MEDS: ALPRAZolam TAB* 0.5 MG PO PRN ×2 (21:22→23:43)
[2018-09-24] MEDS: Pramipexole TAB* 0.5 MG PO SCH (21:22)
[2018-09-24 21:41] LABS: Urine Appearance Cloudy; Urine Bacteria Absent (Absent); Urine Bilirubin Negative (Negative); Urine Blood 3+ (Negative); Urine Color Yellow; Urine Glucose Negative (Negative); Urine Ketones Negative (Negative); Urine Nitrite Negative (Negative); Urine Protein 1+(30 mg/dL) (Negative); Urine Red Blood Cell 3+(>10/hpf) (Absent); Urine Urobilinogen Negative (Negative); Urine White Blood Cell 1+(6-10/hpf) (Absent)
[2018-09-24] MEDS ORDERED: Acetaminophen TAB* 325 MG PO ONE (23:37)
[2018-09-24] MEDS ORDERED: Ibuprofen TAB* 400 MG PO PRN (23:40)
--- NOTE | 2018-09-24 23:43 | PN ---
Subjective Date of Service: 09/24/18 Interval History: Patient continued to spike fevers overnight, has been pancultured, on broad spectrum abx, awaiting dialysis tomorrow Spiked > 101 after 650 of Tylenol, repeat dose ordered, will increase dose to 975 q 6 hours, may give x 1 motrin dose if persistent fever >101 after tylenol Consider renal US given pyleo seen on CT Scan 09/21 with possible collection or abscess given persistent fevers, ID following, follow culture data. Past Medical History: Unchanged from Admission Objective Active Medications: Acetaminophen (Tylenol Tab*) 650 mg PO Q6H PRN PRN Reason: FEVER/PAIN Last Admin: 09/24/18 21:21 Dose: 650 mg Acetaminophen (Tylenol Tab*) 650 mg PO ONCE ONE Stop: 09/24/18 23:38 Acyclovir (Zovirax Cap*) 200 mg PO Q12HR [facility] Last Admin: 09/24/18 21:21 Dose: 200 mg Alprazolam (Xanax Tab*) 0.5 mg PO Q12HR PRN PRN Reason: ANXIETY Last Admin: 09/23/18 09:01 Dose: 0.5 mg Aspirin (Aspirin Ec Tab*) 81 mg PO BEDTIME [facility] Last Admin: 09/24/18 21:21 Dose: 81 mg Cyanocobalamin (Vitamin B12 Tab*) 2,500 mcg PO DAILY [facility] Last Admin: 09/24/18 09:47 Dose: 2,500 mcg Device (Nicotine Mouth Piece*) 1 each INH .USE W/ CARTRIDGE PRN PRN Reason: WITHDRAWAL - NICOTINE Last Admin: 09/22/18 11:57 Dose: 1 each Diphenhydramine HCl (Benadryl Po*) 25 mg PO BID PRN PRN Reason: ITCHING Heparin Sodium (Porcine) (Heparin Vial(*)) 5,000 units SUBCUT Q8HR [facility] Last Admin: 09/24/18 21:23 Dose: 5,000 units Heparin Sodium (Porcine) (Heparin Flush Port (Ivad)) 5 ml FLUSH DAILY [facility]; Protocol Last Admin: 09/24/18 15:48 Dose: 5 ml Piperacillin Sod/Tazobactam (Sod 3.375 gm/ Sodium Chloride) 100 mls @ 25 mls/ hr IVPB Q12H [facility] Last Admin: 09/24/18 21:24 Dose: 25 mls/hr Ibuprofen (Motrin Tab*) 400 mg PO Q6H PRN PRN Reason: PAIN or FEVER Levothyroxine Sodium (Synthroid Tab*) 50 mcg PO DAILY@0600 [facility] Last Admin: 09/24/18 05:29 Dose: 50 mcg Magnesium Oxide (Magox 400 Tab*) 400 mg PO DAILY [facility] Last Admin: 09/24/18 09:48 Dose: 400 mg Nicotine (Nicotine Inhaler*) 10 mg INH Q2H PRN PRN Reason: CRAVING Last Admin: 09/24/18 09:46 Dose: 10 mg Pharmacy Consult (Vancomycin Per Pharmacy*) 1 note FOLLOW UP .VANC PER PHARMACY [facility] Pharmacy Consult (Zosyn Per Pharmacy*) 1 note FOLLOW UP .ZOSYN PER PHARMACY [facility] Pharmacy Consult (Vancomycin Random Level*) 1 note FOLLOW UP ONCE ONE Stop: 09/25/18 06:01 Polyethylene Glycol/Electrolytes (Miralax*) 17 gm PO DAILY PRN PRN Reason: CONSTIPATION Pramipexole Dihydrochloride (Mirapex Tab*) 1 mg PO BEDTIME [facility] Last Admin: 09/24/18 21:22 Dose: 1 mg Senna (Senokot Tab*) 1 tab PO DAILY PRN PRN Reason: CONSTIPATION Throat Lozenges (Chloraseptic Anjel*) 1 anjel PO Q3H PRN PRN Reason: SORE THROAT Last Admin: 09/24/18 21:24 Dose: 1 anjel Tramadol HCl (Ultram*) 50 mg PO BID [facility] Last Admin: 09/24/18 09:57 Dose: 50 mg Vital Signs - 8 hr 09/24/18 09/24/18 09/24/18 15:44 15:51 19:42 Temperature 98.9 F 101.4 F Pulse Rate 101 99 Respiratory 18 18 24 Rate Blood Pressure 122/59 152/66 (mmHg) O2 Sat by Pulse 97 97 Oximetry 09/24/18 09/24/18 22:24 23:26 Temperature 97.9 F 101.2 F Pulse Rate 116 109 Respiratory 19 Rate Blood Pressure 126/52 141/110 (mmHg) O2 Sat by Pulse 96 Oximetry Oxygen Devices in Use Now: None Result Diagrams: 09/24/18 05:35 09/24/18 05:35 Microbiology and Other Data: Microbiology 09/21/18 10:10 Nasal Screen MRSA (PCR) - Final Nasal Mrsa Detected Assess/Plan/Problems-Billing Assessment: 58 year old male admitted for fever and hypotension consistent with sepsis secondary to pyelonephritis.
[2018-09-25] MEDS: Levothyroxine TAB* 50 MCG TAB PO SCH (05:19)
[2018-09-25] MEDS: Heparin VIAL(*) 5000 UNITS/ML VIAL (FIVE THOUSAND) SUBCUT SCH ×3 (05:19→22:09)
[2018-09-25 05:39] LABS: ABS Basophils 0 10^3/ul (0-0.2); ABS Eosinophils 0.1 10^3/ul (0-0.6); ABS Lymphocytes 0.3 10^3/ul (1.0-4.8); ABS Monocytes 0.2 10^3/ul (0-0.8); ABS Neutrophils 4.5 10^3/ul (1.5-7.7); ABS Nucleated RBC 0 10^3/ul; Eosinophil % 1.5 %; Hematocrit 29 % (36-46); Hemoglobin 9.5 g/dL (14.0-18.0); Lymphocyte % 6.2 %; Mean Corpuscular HGB Conc 33 g/dL (31-36); Mean Corpuscular Hemoglobin 31 pg (27-31); Mean Corpuscular Volume 95 fL (80-94); Mean Platelet Volume 6.6 fL (7.4-10.4); Nucleated Red Blood Cells % 0; Platelet Count 161 10^3/uL (150-450); Red Blood Count 3.04 10^6 /uL (4.18-5.48); Red Cell Distribution Width 19 % (10.5-15); White Blood Count 5.1 10^3/uL (3.5-10.8)
[2018-09-25 05:58] LABS: BUN/Creatinine Ratio 6.7 (8-20); Calcium 9.1 mg/dL (8.6-10.3); EGFR African American 10.3 (>60); EGFR Non-African American 8.5 (>60); Magnesium 2.2 mg/dL (1.9-2.7); Potassium 4.5 mmol/L (3.5-5.0)
[2018-09-25] MEDS ORDERED: Vancomycin Random Level* NOTE FOLLOW UP ONE (06:00)
[2018-09-25] MEDS: Acetaminophen TAB* 325 MG PO PRN ×2 (09:00→16:01)
[2018-09-25] MEDS ORDERED: Vancomycin - DIALYSIS DOSING* NOTE FOLLOW UP SCH (09:06)
--- NOTE | 2018-09-25 10:03 | PN ---
Progress Note - Progress Note Date of Service: 09/25/18 SOAP: Subjective: CC: Fever HPI: Mr. Myers is a 58 yo male with PMH significant for ESRD secondary to multiple myeloma on hemodialysis, morbid obesity, peripheral neuropathy, PTSD, [place] on CPAP, and hypothyroidism. Denies fever, chills, shortness of breath, flank pain , nausea, vomiting, or diarrhea. Noted to have fevers yesterday. He states that he feels confused today. Reports a productive cough starting yesterday. Objective: Vital Signs - 8 hr 09/25/18 09/25/18 09/25/18 02:00 02:01 03:15 Temperature 99.9 F Pulse Rate 102 Respiratory 18 18 20 Rate Blood Pressure 127/62 (mmHg) O2 Sat by Pulse 97 Oximetry 09/25/18 09/25/18 09/25/18 08:39 08:51 09:13 Temperature 100.4 F Pulse Rate 113 Respiratory 20 20 Rate Blood Pressure 139/76 (mmHg) O2 Sat by Pulse 94 Oximetry Physical Exam: General: NAD, sitting up in a chair Neurological: Alert and Oriented x4 Cardiovascular: Heart rate regular Respiratory: Lung clear Abdominal: Bowel sounds present, ABD soft, large and non tender Skin: No rashes seen on the exposed skin, does have chronic skin changes to bilateral LEs Laboratory Results - last 24 hr 09/24/18 09/25/18 09/25/18 20:45 05:25 05:25 WBC 5.1 RBC 3.04 L Hgb 9.5 L Hct 29 L MCV 95 H MCH 31 MCHC 33 RDW 19 H Plt Count 161 MPV 6.6 L Neut % (Auto) 87.3 Lymph % (Auto) 6.2 [place] % (Auto) 4.7 Eos % (Auto) 1.5 Baso % (Auto) 0.3 Absolute Neuts (auto) 4.5 Absolute Lymphs (auto) 0.3 L Absolute Monos (auto) 0.2 Absolute Eos (auto) 0.1 Absolute Basos (auto) 0 Absolute Nucleated RBC 0 Nucleated RBC % 0 Sodium 135 Potassium 4.5 Chloride 100 L Carbon Dioxide 24 Anion Gap 11 BUN 45 H Creatinine 6.72 H Est GFR ( Amer) 10.3 Est GFR (Non-Af Amer) 8.5 BUN/Creatinine Ratio 6.7 L Glucose 127 H Calcium 9.1 Phosphorus 5.0 Magnesium 2.2 Urine Color Yellow Urine Appearance Cloudy Urine pH 6.0 Ur Specific [place] 1.010 Urine Protein 1+(30 mg/dl) A Urine Ketones Negative Urine Blood 3+ A Urine Nitrate Negative Urine Bilirubin Negative Urine Urobilinogen Negative Ur Leukocyte Esterase Trace A Urine WBC (Auto) 1+(6-10/hpf) A Urine RBC (Auto) 3+(>10/hpf) A Urine Bacteria Absent Urine Glucose Negative Random Vancomycin 18.0 Microbiology 09/21/18 02:45 Aerobic Blood Culture - Preliminary Blood Venous No Growth Day 4 Anaerobic Blood Culture - Preliminary No Growth Day 4 09/21/18 02:36 Aerobic Blood Culture - Preliminary Blood Venous No Growth Day 4 Anaerobic Blood Culture - Preliminary No Growth Day 4 09/22/18 13:45 Aerobic Blood Culture - Preliminary Blood Venous No Growth Day 2 Anaerobic Blood Culture - Preliminary No Growth Day 2 09/21/18 03:33 Urine Culture - Final Urine No Growth (<1,000 CFU/mL) 09/21/18 10:10 Nasal Screen MRSA (PCR) - Final Nasal Mrsa Detected Assessment: 1. Fever while on ABX. Differential DX: Drug fever, PNA, or other viral illness. Blood cultures with no growth on day 4, low suspicion for port/line infection. Initial urine culture with no growth. Repeat urine culture pending. Influenza A/B negative on admission. Temperature max was 101.2 overnight. Renal US this AM shows "splenomegaly, mild bilateral renal cortical atrophy, negative for obstructive uropathy". 2. Multiple myeloma. Immunocompromised due to recent chemotherapy 3. Morbid obesity with [place] on CPAP at HS 4. ESRD on hemodialysis secondary to multiple myeloma 5. Peripheral neuropathy Plan: Continue Zosyn and vancomycin while repeat cultures are pending. Recommend checking a chest xray and obtaining a sputum culture.
[2018-09-25] MEDS ORDERED: EPOETIN ALFA-EPBX * 10,000 UNIT/ML VIAL IV ONE (10:45)
--- NOTE | 2018-09-25 13:25 | PN ---
Subjective Date of Service: 09/25/18 Interval History: Patient has no new complaints. Just returned from dialysis, feels chilled, shaking. Family History: Unchanged from Admission Social History: Unchanged from Admission Past Medical History: Unchanged from Admission Objective Active Medications: Acetaminophen (Tylenol Tab*) 975 mg PO Q6H PRN PRN Reason: FEVER/PAIN Last Admin: 09/25/18 09:00 Dose: 975 mg Acyclovir (Zovirax Cap*) 200 mg PO Q12HR [facility] Last Admin: 09/24/18 21:21 Dose: 200 mg Alprazolam (Xanax Tab*) 0.5 mg PO Q12HR PRN PRN Reason: ANXIETY Last Admin: 09/24/18 23:43 Dose: 0.5 mg Aspirin (Aspirin Ec Tab*) 81 mg PO BEDTIME [facility] Last Admin: 09/24/18 21:21 Dose: 81 mg Cyanocobalamin (Vitamin B12 Tab*) 2,500 mcg PO DAILY [facility] Last Admin: 09/24/18 09:47 Dose: 2,500 mcg Diphenhydramine HCl (Benadryl Po*) 25 mg PO BID PRN PRN Reason: ITCHING Heparin Sodium (Porcine) (Heparin Vial(*)) 5,000 units SUBCUT Q8HR [facility] Last Admin: 09/25/18 05:19 Dose: 5,000 units Heparin Sodium (Porcine) (Heparin Flush Port (Ivad)) 5 ml FLUSH DAILY [facility]; Protocol Last Admin: 09/25/18 09:35 Dose: Not Given Piperacillin Sod/Tazobactam (Sod 3.375 gm/ Sodium Chloride) 100 mls @ 25 mls/ hr IVPB Q12H [facility] Last Admin: 09/24/18 21:24 Dose: 25 mls/hr Vancomycin HCl 1,000 mg/ (Sodium Chloride) 250 mls @ 166.667 mls/hr IVPB ONCE ONE Stop: 09/25/18 17:29 Ibuprofen (Motrin Tab*) 400 mg PO Q6H PRN PRN Reason: PAIN or FEVER Levothyroxine Sodium (Synthroid Tab*) 50 mcg PO DAILY@0600 [facility] Last Admin: 09/25/18 05:19 Dose: 50 mcg Magnesium Oxide (Magox 400 Tab*) 400 mg PO DAILY [facility] Last Admin: 09/24/18 09:48 Dose: 400 mg Nicotine (Nicotine Inhaler*) 10 mg INH Q2H PRN PRN Reason: CRAVING Last Admin: 09/24/18 09:46 Dose: 10 mg Polyethylene Glycol/Electrolytes (Miralax*) 17 gm PO DAILY PRN PRN Reason: CONSTIPATION Pramipexole Dihydrochloride (Mirapex Tab*) 1 mg PO BEDTIME [facility] Last Admin: 09/24/18 21:22 Dose: 1 mg Senna (Senokot Tab*) 1 tab PO DAILY PRN PRN Reason: CONSTIPATION Throat Lozenges (Chloraseptic Anjel*) 1 anjel PO Q3H PRN PRN Reason: SORE THROAT Last Admin: 09/24/18 21:24 Dose: 1 anjel Tramadol HCl (Ultram*) 50 mg PO BID [facility] Last Admin: 09/24/18 23:43 Dose: 50 mg Vital Signs - 8 hr 09/25/18 09/25/18 09/25/18 08:39 08:51 09:13 Temperature 38.0 C Pulse Rate 113 Respiratory 20 20 Rate Blood Pressure 139/76 (mmHg) O2 Sat by Pulse 94 Oximetry Oxygen Devices in Use Now: None Appearance: alert, no distress Eyes: No Scleral Icterus Neck: NL Appearance and Movements; NL JVP Respiratory: Symmetrical Chest Expansion and Respiratory Effort, Clear to Auscultation, - Cardiovascular: NL Sounds; No Murmurs; No JVD, RRR Abdominal: NL Sounds; No Tenderness; No Distention Lymphatic: No Cervical Adenopathy Extremities: - - 3+ pitting edema bilat LE, chronic venostasis changes Neurological: Alert and Oriented x 3 Lines/Tubes/Other Access: Clean, Dry and Intact Peripheral IV Nutrition: Taking PO's Result Diagrams: 09/25/18 05:25 09/25/18 05:25 Additional Lab and Data: urine culture pending Microbiology and Other Data: Microbiology 09/21/18 10:10 Nasal Nasal Screen MRSA (PCR) - Final Mrsa Detected 09/22/18 13:45 Blood Venous Aerobic Blood Culture - Preliminary 09/22/18 13:45 Blood Venous Anaerobic Blood Culture - Preliminary No Growth Day 2 No Growth Day 2 09/21/18 02:45 Blood Venous Aerobic Blood Culture - Preliminary 09/21/18 02:45 Blood Venous Anaerobic Blood Culture - Preliminary No Growth Day 4 No Growth Day 4 09/21/18 02:36 Blood Venous Aerobic Blood Culture - Preliminary 09/21/18 02:36 Blood Venous Anaerobic Blood Culture - Preliminary No Growth Day 4 No Growth Day 4 Diagnostic Imaging: Renal U/S: no abscess, no pyelo seen Assess/Plan/Problems-Billing Assessment: 58 year old male with myeloma admitted for fever and hypotension consistent with sepsis, source suspected to be pneumonia or pyelonephritis. - Patient Problems (1) Sepsis associated hypotension Current Visit: Yes Status: Acute Priority: High Code(s): A41.9 - SEPSIS, UNSPECIFIED ORGANISM; I95.9 - HYPOTENSION, UNSPECIFIED SNOMED Code(s): 89464779 Comment: - Etiology less likely pyelonephritis, pneumonia, cellulitis, endocarditis possible - Appreciate ID consult, following up on CXR, Urine culture, sputum - Will continue wide spectrum antibiotics with Zosyn Day # 5 and Vanco Day # 5 ( MRSA screen positive) pending final culture. - catheter cultures no growth to date (2) ESRD (end stage renal disease) on dialysis Current Visit: Yes Status: Acute Priority: Medium Code(s): N18.6 - END STAGE RENAL DISEASE; Z99.2 - DEPENDENCE ON RENAL DIALYSIS SNOMED Code(s): 796813309 Comment: - continue hemodialysis per Dr. Read - renal u/s shows medical renal disease (3) Multiple myeloma Current Visit: Yes Status: Acute Priority: Medium Code(s): C90.00 - MULTIPLE MYELOMA NOT HAVING ACHIEVED REMISSION SNOMED Code(s): 550193634 Comment: - immunosuppressed due to chemotherapy, contributes strongly to sepsis (4) DVT prophylaxis Current Visit: Yes Status: Acute Priority: Low Code(s): BDQ6060 - SNOMED Code(s): 325606352 Comment: - Heparin 5000 Q 8 hrs
[2018-09-25 14:07] LABS: Hepatitis B Surface Antigen Nonreactive (Nonreactive)
[2018-09-25] MEDS: Cyanocobalamin TAB* 500 MCG PO SCH (14:12)
[2018-09-25] MEDS: Acyclovir* 200 MG CAP PO SCH ×2 (14:12→22:06)
[2018-09-25] MEDS: Magnesium Oxide TAB* 400 MG PO SCH (14:13)
[2018-09-25] MEDS: ZOSYN 3.375 GM Q12H per EXTENDED INFUSION IVPB SCH ×4 (14:13→22:09)
[2018-09-25] MEDS: traMADol TAB* 50 MG PO SCH ×2 (14:14→22:07)
[2018-09-25 14:32] LABS: Hepatitis B Surface AB Not Immune (Immune)
[2018-09-25] MEDS ORDERED: Vancomycin(*) 1,000 MG in NS 0.9% 250 ML* 250 ML IVPB ONE (16:00)
[2018-09-25] MEDS: Pramipexole TAB* 0.5 MG PO SCH (22:06)
[2018-09-25] MEDS: Aspirin EC TAB* 81 MG TAB.EC PO SCH (22:07)
[2018-09-26] MEDS: Heparin VIAL(*) 5000 UNITS/ML VIAL (FIVE THOUSAND) SUBCUT SCH ×3 (05:41→21:13)
[2018-09-26] MEDS: Levothyroxine TAB* 50 MCG TAB PO SCH (05:41)
[2018-09-26] MEDS: traMADol TAB* 50 MG PO SCH ×2 (09:30→21:01)
[2018-09-26] MEDS: Magnesium Oxide TAB* 400 MG PO SCH (09:30)
[2018-09-26] MEDS: Acyclovir* 200 MG CAP PO SCH ×2 (09:31→21:00)
[2018-09-26] MEDS: Cyanocobalamin TAB* 500 MCG PO SCH (10:15)
[2018-09-26] MEDS: ALPRAZolam TAB* 0.5 MG PO PRN (10:15)
[2018-09-26] MEDS: ZOSYN 3.375 GM Q12H per EXTENDED INFUSION IVPB SCH ×2 (10:16)
--- NOTE | 2018-09-26 13:42 | PN ---
Progress Note - Progress Note Date of Service: 09/26/18 SOAP: Subjective: CC:Fever HPI: Mr. Myers is a 58 yo male with PMH significant for ESRD secondary to multiple myeloma on hemodialysis, morbid obesity, peripheral neuropathy, PTSD, [place] on CPAP, and hypothyroidism. Denies fever, chills, sore throat, sinus pressure, shortness of breath, flank pain, nausea, vomiting, or diarrhea. He reports some postnasal drip, nasal congestion, and intermittent productive cough. States that overall he is feeling better today. Objective: Vital Signs - 8 hr 09/26/18 09/26/18 09/26/18 08:44 08:45 09:30 Temperature 97.9 F Pulse Rate 86 Respiratory 22 20 18 Rate Blood Pressure 123/62 (mmHg) O2 Sat by Pulse 96 96 Oximetry 09/26/18 09/26/18 09/26/18 10:15 12:11 12:13 Temperature 97.3 F 97.3 F Pulse Rate 81 81 Respiratory 17 18 18 Rate Blood Pressure 120/56 120/56 (mmHg) O2 Sat by Pulse 98 98 Oximetry Physical Exam: General: NAD, sitting up in a chair Neurological: Alert and Oriented x4 Cardiovascular: Heart rate regular Respiratory: Lung sounds with scattered rhonchi bilateral Abdominal: Bowel sounds present, ABD soft, large, and non tender Skin: Bilateral LEs with erythema and edema Laboratory Results - last 24 hr 09/22/18 08:52 Hepatitis B Antibody Not immune A Hep Bs Antigen Nonreactive Hep Bs Antibody, Quant < 3.10 Microbiology 09/21/18 02:45 Aerobic Blood Culture - Final Blood Venous No Growth Day 5 Anaerobic Blood Culture - Final No Growth Day 5 09/21/18 02:36 Aerobic Blood Culture - Final Blood Venous No Growth Day 5 Anaerobic Blood Culture - Final No Growth Day 5 09/24/18 23:59 Aerobic Blood Culture - Preliminary Blood Venous No Growth Day 1 Anaerobic Blood Culture - Preliminary No Growth Day 1 09/24/18 21:14 Aerobic Blood Culture - Preliminary Blood Venous No Growth Day 1 Anaerobic Blood Culture - Preliminary No Growth Day 1 09/24/18 20:45 Urine Culture - Final Urine No Growth (<1,000 CFU/mL) 09/22/18 13:45 Aerobic Blood Culture - Preliminary Blood Venous No Growth Day 3 Anaerobic Blood Culture - Preliminary No Growth Day 3 09/25/18 10:45 Gram Stain - Final Sputum 09/21/18 03:33 Urine Culture - Final Urine No Growth (<1,000 CFU/mL) 09/21/18 10:10 Nasal Screen MRSA (PCR) - Final Nasal Mrsa Detected Assessment: 1. Fever and continued fever while on ABX. Differential DX: Drug fever, PNA, or other viral illness. Blood cultures with no growth on day 4, low suspicion for port/line infection. Initial urine culture with no growth. Repeat urine culture 09/24, no growth. Influenza A/B negative on admission. Temperature max was 101.9 yesterday morning, low grade fever yesterday afternoon 100.8. Renal US this AM shows "splenomegaly, mild bilateral renal cortical atrophy, negative for obstructive uropathy". Chest xray with mild pulmonary interstitial edema. 2. Multiple myeloma. Immunocompromised due to recent chemotherapy 3. Morbid obesity with [place] on CPAP at HS 4. ESRD on hemodialysis secondary to multiple myeloma 5. Peripheral neuropathy Plan: Stop antibiotics and monitor for fevers. Received 6 days of Zosyn and Vanco.
--- NOTE | 2018-09-26 14:58 | PN ---
Subjective Date of Service: 09/26/18 Interval History: Patient continues to have loose cough. No fever overnight, but was 38 yesterday afternoon. He reports his dry weight is not known at dialysis, and that it fluctuates widely, which has caused hypotension. Also reports minimal advice on intake of potassium, calcium, phos, and water. Often gains 5-6 liters in 2 days BTW hemodialysis. Family History: Unchanged from Admission Social History: Unchanged from Admission Past Medical History: Unchanged from Admission Objective Active Medications: Acetaminophen (Tylenol Tab*) 975 mg PO Q6H PRN PRN Reason: FEVER/PAIN Last Admin: 09/25/18 16:01 Dose: 975 mg Acyclovir (Zovirax Cap*) 200 mg PO Q12HR [facility] Last Admin: 09/26/18 09:31 Dose: 200 mg Alprazolam (Xanax Tab*) 0.5 mg PO Q12HR PRN PRN Reason: ANXIETY Last Admin: 09/26/18 10:15 Dose: 0.5 mg Aspirin (Aspirin Ec Tab*) 81 mg PO BEDTIME [facility] Last Admin: 09/25/18 22:07 Dose: 81 mg Cyanocobalamin (Vitamin B12 Tab*) 2,500 mcg PO DAILY [facility] Last Admin: 09/26/18 10:15 Dose: 2,500 mcg Device (Nicotine Mouth Piece*) 1 each INH .USE W/ CARTRIDGE PRN PRN Reason: WITHDRAWAL - NICOTINE Last Admin: 09/22/18 11:57 Dose: 1 each Diphenhydramine HCl (Benadryl Po*) 25 mg PO BID PRN PRN Reason: ITCHING Heparin Sodium (Porcine) (Heparin Vial(*)) 5,000 units SUBCUT Q8HR [facility] Last Admin: 09/26/18 14:39 Dose: 5,000 units Heparin Sodium (Porcine) (Heparin Flush Port (Ivad)) 5 ml FLUSH DAILY [facility]; Protocol Last Admin: 09/26/18 05:41 Dose: 5 ml Ibuprofen (Motrin Tab*) 400 mg PO Q6H PRN PRN Reason: PAIN or FEVER Levothyroxine Sodium (Synthroid Tab*) 50 mcg PO DAILY@0600 [facility] Last Admin: 09/26/18 05:41 Dose: 50 mcg Magnesium Oxide (Magox 400 Tab*) 400 mg PO DAILY [facility] Last Admin: 09/26/18 09:30 Dose: 400 mg Nicotine (Nicotine Inhaler*) 10 mg INH Q2H PRN PRN Reason: CRAVING Last Admin: 09/24/18 09:46 Dose: 10 mg Polyethylene Glycol/Electrolytes (Miralax*) 17 gm PO DAILY PRN PRN Reason: CONSTIPATION Pramipexole Dihydrochloride (Mirapex Tab*) 1 mg PO BEDTIME [facility] Last Admin: 09/25/18 22:06 Dose: 1 mg Senna (Senokot Tab*) 1 tab PO DAILY PRN PRN Reason: CONSTIPATION Throat Lozenges (Chloraseptic Anjel*) 1 anjel PO Q3H PRN PRN Reason: SORE THROAT Last Admin: 09/24/18 21:24 Dose: 1 anjel Tramadol HCl (Ultram*) 50 mg PO BID [facility] Last Admin: 09/26/18 09:30 Dose: 50 mg Vital Signs - 8 hr 09/26/18 09/26/18 09/26/18 08:44 08:45 09:30 Temperature 36.6 C Pulse Rate 86 Respiratory 22 20 18 Rate Blood Pressure 123/62 (mmHg) O2 Sat by Pulse 96 96 Oximetry 09/26/18 09/26/18 09/26/18 10:15 12:11 12:13 Temperature 36.3 C 36.3 C Pulse Rate 81 81 Respiratory 17 18 18 Rate Blood Pressure 120/56 120/56 (mmHg) O2 Sat by Pulse 98 98 Oximetry Oxygen Devices in Use Now: None Appearance: alert, no distress Eyes: No Scleral Icterus Ears/Nose/Mouth/Throat: Clear Oropharnyx Neck: NL Appearance and Movements; NL JVP Respiratory: Symmetrical Chest Expansion and Respiratory Effort, - - upper airway sounds bilat, no rales/wheezes Cardiovascular: NL Sounds; No Murmurs; No JVD Abdominal: NL Sounds; No Tenderness; No Distention Neurological: Alert and Oriented x 3 Lines/Tubes/Other Access: Clean, Dry and Intact Peripheral IV Result Diagrams: 09/25/18 05:25 09/25/18 05:25 Microbiology and Other Data: Microbiology 09/25/18 10:45 Sputum Gram Stain - Final 09/24/18 20:45 Urine Urine Culture - Final No Growth (<1,000 CFU/mL) 09/24/18 23:59 Blood Venous Aerobic Blood Culture - Preliminary 09/24/18 23:59 Blood Venous Anaerobic Blood Culture - Preliminary No Growth Day 1 No Growth Day 1 09/24/18 21:14 Blood Venous Aerobic Blood Culture - Preliminary 09/24/18 21:14 Blood Venous Anaerobic Blood Culture - Preliminary No Growth Day 1 No Growth Day 1 Diagnostic Imaging: Renal U/S: no abscess, no pyelo seen CT C/A/P: emphysema, pulm HTN, bilateral kidney stranding, RT pulmonary nodule Assess/Plan/Problems-Billing Assessment: 58 year old male with myeloma admitted for fever and hypotension consistent with sepsis, source suspected to be pneumonia or pyelonephritis. - Patient Problems (1) Sepsis associated hypotension Current Visit: Yes Status: Acute Priority: High Code(s): A41.9 - SEPSIS, UNSPECIFIED ORGANISM; I95.9 - HYPOTENSION, UNSPECIFIED SNOMED Code(s): 27196393 Comment: - Etiology appears to be pulmonary, by symptoms - Following blood and sputum cultures - ID consult has advised d/c antibiotics post 6 days, and observe overnight for fever - catheter cultures no growth to date (2) ESRD (end stage renal disease) on dialysis Current Visit: Yes Status: Acute Priority: Medium Code(s): N18.6 - END STAGE RENAL DISEASE; Z99.2 - DEPENDENCE ON RENAL DIALYSIS SNOMED Code(s): 509640783 Comment: - continue hemodialysis per Dr. Read - needs clearer instructions on fluid intake, diet (3) Multiple myeloma Current Visit: Yes Status: Acute Priority: Medium Code(s): C90.00 - MULTIPLE MYELOMA NOT HAVING ACHIEVED REMISSION SNOMED Code(s): 987939831 Comment: - immunosuppressed due to chemotherapy, contributes strongly to sepsis (4) DVT prophylaxis Current Visit: Yes Status: Acute Priority: Low Code(s): DNN8031 - SNOMED Code(s): 268744698 Comment: - Heparin 5000 Q 8 hrs Status and Disposition: Inpatient, discharge tomorrow if afebrile overnight, has dialysis chair at 4PM in [place]
[2018-09-26] MEDS: Aspirin EC TAB* 81 MG TAB.EC PO SCH (21:01)
[2018-09-26] MEDS: Pramipexole TAB* 0.5 MG PO SCH (21:02)
[2018-09-27] MEDS ORDERED: Vancomycin Random Level* NOTE FOLLOW UP ONE (06:00)
[2018-09-27] MEDS: Heparin VIAL(*) 5000 UNITS/ML VIAL (FIVE THOUSAND) SUBCUT SCH (07:16)
[2018-09-27] MEDS: Levothyroxine TAB* 50 MCG TAB PO SCH (07:17)
--- NOTE | 2018-09-27 08:18 | PN ---
Progress Note - Progress Note Date of Service: 09/27/18 SOAP: Subjective: CC: Fever HPI: Mr. Myers is a 58 yo male with PMH significant for ESRD secondary to multiple myeloma on hemodialysis, morbid obesity, peripheral neuropathy, PTSD, [place] on CPAP, and hypothyroidism. Denies fever, chills, shortness of breath, chest discomfort, N/V/D, urinary symptoms. He continues to have an intermittent cough that is productive. Objective: Vital Signs - 8 hr 09/27/18 03:10 Temperature 98.4 F Pulse Rate 82 Respiratory 19 Rate Blood Pressure 119/61 (mmHg) O2 Sat by Pulse 95 Oximetry Physical Exam: General: NAD, sitting up in a chair Neurological: Alert and Oriented x4 Cardiovascular: Heart rate regular Respiratory: Lung sounds clear bilateral Abdominal: Bowel sounds present, ABD soft, large and non tender Skin: Bilateral LEs with mild erythema below the knees, not warm to the touch compared to the rest of his skin Microbiology 09/24/18 23:59 Aerobic Blood Culture - Preliminary Blood Venous No Growth Day 2 Anaerobic Blood Culture - Preliminary No Growth Day 2 09/24/18 21:14 Aerobic Blood Culture - Preliminary Blood Venous No Growth Day 2 Anaerobic Blood Culture - Preliminary No Growth Day 2 09/22/18 13:45 Aerobic Blood Culture - Preliminary Blood Venous No Growth Day 4 Anaerobic Blood Culture - Preliminary No Growth Day 4 09/21/18 02:45 Aerobic Blood Culture - Final Blood Venous No Growth Day 5 Anaerobic Blood Culture - Final No Growth Day 5 09/21/18 02:36 Aerobic Blood Culture - Final Blood Venous No Growth Day 5 Anaerobic Blood Culture - Final No Growth Day 5 09/24/18 20:45 Urine Culture - Final Urine No Growth (<1,000 CFU/mL) 09/25/18 10:45 Gram Stain - Final Sputum 09/21/18 03:33 Urine Culture - Final Urine No Growth (<1,000 CFU/mL) 09/21/18 10:10 Nasal Screen MRSA (PCR) - Final Nasal Mrsa Detected Assessment: 1. Fever and continued fever while on ABX. Fevers have resolved, no fever for > 24 hours. Differential DX: Drug fever, PNA, port/line infection, or other viral illness. Blood cultures with no growth on day 5 and day 4, low suspicion for port/line infection. Initial urine culture with no growth and repeat urine culture 09/24/18, no growth. Renal US is negative for obstructive uropathy. Influenza A/B negative on admission. Chest xray with mild pulmonary interstitial edema. Sputum culture pending 2. Multiple myeloma. Immunocompromised due to recent chemotherapy 3. Morbid obesity with [place] on CPAP at HS 4. ESRD on hemodialysis secondary to multiple myeloma 5. Peripheral neuropathy Plan: Received 6 days of IV Zosyn and Vanco, no further ABX needed.
[2018-09-27] MEDS: Cyanocobalamin TAB* 500 MCG PO SCH (08:31)
[2018-09-27] MEDS: Magnesium Oxide TAB* 400 MG PO SCH (08:32)
[2018-09-27] MEDS: Acyclovir* 200 MG CAP PO SCH (08:32)
[2018-09-27] MEDS: traMADol TAB* 50 MG PO SCH (08:34)
[2018-09-27] MEDS: ALPRAZolam TAB* 0.5 MG PO PRN (08:45)
[2018-09-27 10:21] VITALS: BP 113/63
[2018-09-27] MEDS ORDERED: EPOETIN ALFA-EPBX * 10,000 UNIT/ML VIAL IV ONE (11:30)
[2018-09-27] MEDS ORDERED: Heparin DIALYSIS ONLY(*) 1,000 UNITS/ML VIAL DIALYSIS ONE (12:00)
[2018-09-27] MEDS ORDERED: Vancomycin(*) 1,000 MG in NS 0.9% 250 ML* 250 ML IVPB ONE (17:00)
--- NOTE | 2018-09-28 13:44 | DS ---
CC: Dr. Read; Dr. Bessie HoltFort [place], [place]* DISCHARGE SUMMARY: DATE OF ADMISSION: 09/21/18 DATE OF DISCHARGE: 09/27/18 PRIMARY DIAGNOSIS: Septic shock, unknown etiology, unknown source. SECONDARY DIAGNOSES: 1. Multiple myeloma, under treatment with [facility] in [place], [place]. 2. End-stage renal disease due to myeloma. 3. Obesity. 4. Obstructive sleep apnea, on CPAP. 5. Tobacco abuse. 6. Peripheral neuropathy. 7. Posttraumatic stress disorder. 8. Hypothyroidism. 9. Restless legs syndrome. MEDICATIONS ON DISCHARGE: 1. Acyclovir 200 mg p.o. q.12 hours. 2. Alprazolam 0.5 mg p.o. q.12 hours p.r.n. anxiety. 3. Aspirin 81 mg p.o. q.h.s. 4. Benadryl 25 mg p.o. b.i.d. p.r.n. 5. Vitamin B12 2500 mcg p.o. q. day. 6. Levothyroxine 50 mcg p.o. q. day. 7. Magnesium oxide 250 mg p.o. q. day. 8. Pramipexole 1 mg p.o. q.h.s. 9. Tramadol ER 200 mg p.o. q. day. 10. Vitamin B6 100 mg p.o. q. day. 11. Vitamin D3 2000 units p.o. q. day. 12. Acetaminophen 650 mg p.o. q.6 hours p.r.n. pain. 13. Ibuprofen 400 mg p.o. q.6 hours p.r.n. pain. 14. Nicotine inhaler 10 mg inhaled q.2 hours p.r.n. (this is the only new medication). 15. MiraLAX 17 g mixed with water p.o. q. day. 16. Senna 1 tab p.o. q. day. HOSPITAL COURSE: Mr. Tate is a 58-year-old man with the above medical history , who presented to the emergency department with acute shortness of breath. He is newly on dialysis for the last 6 weeks and had dialysis the day of admission. His initial blood pressures were in the 60/30 range. He was treated in the emergency department with fluid resuscitation and norepinephrine drip. Please see the ER record and the admission note for full details of the complicated admission. He had initial testing including ultrasound of the heart to check for pericardial tamponade. He had a CT chest, abdomen and pelvis , which showed stranding near both kidneys consistent with pyelonephritis. He was treated initially with vancomycin and Levaquin and admitted to the intensive care unit. The patient was seen in consultation by Dr. Casey, who followed him throughout the hospital stay. Clearly, the patient is immunosuppressed from recent chemotherapy and the myeloma itself as well as the renal disease. The patient's blood cultures taken on 09/21/18 and 09/24/18 had no growth. The patient's nasal swab for MRSA was positive and a Gram stain of the sputum that was taken on 09/25/18 eventually grew MRSA as well. The patient did have a cough, but chest x-ray and CTA chest did not show any infiltrates. The patient's search for source control led to repeat renal ultrasound on 09/25/18 that also did not show pyelonephritis or obstruction. The patient's urine did show 3+ blood, 2+ leuk esterase, but did not grow anything on culture. In the end, the patient had a cough and no other localizing symptoms to identify the source of sepsis. He completed 6 days of intravenous vancomycin and Levaquin at renal doses. After 6 days, the antibiotics were stopped in consultation with Infectious Disease and he was observed for 24 hours without any further fever or hypotension. The patient is stable for discharge and the patient had repeat dialysis on the day of discharge. DISPOSITION: Will be to home near [facility] where he lives. DISCHARGE INSTRUCTIONS: He will attend dialysis Tuesday, Tuesday, Tuesday in [place] where he has been previously. He will see his repack room worker within a week. He should see primary care doctor within a week. Of note, on the dialysis , the patient does state that his blood pressure varies wildly during the days of dialysis and that his dry weight is unknown to him and to his dialysis center. It is unclear whether this is true, but the patient does need further education on his diet and fluid intake goals and dry weight goals. DIET: Should be renal diet, low potassium, high protein. ACTIVITY: Should be as tolerated. HOSPITAL STATUS: Inpatient stay. CONDITION: Initially guarded, but stable on discharge. TIME SPENT: I spent 45 minutes examining the patient, coordinating discharge, and completing necessary documentation for the complex medical stay. [id number]/[facility] #: [id number] TONY
[2018-09-29] MEDS ORDERED: Vancomycin Random Level* NOTE FOLLOW UP ONE (06:00)
== END 2018-09-27 15:15 | disposition home or self-care (01) | DRG 871 ==
LOC: ED 01:21 → ICU 04:59 → MED 09-23 09:19
PROVIDERS: ADMIT Internal Medicine; ATTEND Internal Medicine
PROC: 5A1D70Z Performance of Urinary Filtration, Intermittent, Less than 6 Hours Per Day (ICD-10-PCS; principal; 2018-09-22)
DX: A41.9 Sepsis, unspecified organism (principal); N18.6 End stage renal disease; R65.21 Severe sepsis with septic shock; C90.00 Multiple myeloma not having achieved remission; N10 Acute pyelonephritis; I31.3 Pericardial effusion (noninflammatory); L03.90 Cellulitis, unspecified; N17.9 Acute kidney failure, unspecified; Z68.43 Body mass index [BMI] 50.0-59.9, adult; G62.9 Polyneuropathy, unspecified; E66.01 Morbid (severe) obesity due to excess calories; F17.210 Nicotine dependence, cigarettes, uncomplicated; G25.81 Restless legs syndrome; E03.9 Hypothyroidism, unspecified; G47.33 Obstructive sleep apnea (adult) (pediatric); F43.10 Post-traumatic stress disorder, unspecified; G89.29 Other chronic pain; M54.9 Dorsalgia, unspecified; Z82.3 Family history of stroke; Z80.3 Family history of malignant neoplasm of breast; Z99.2 Dependence on renal dialysis; Z91.040 Latex allergy status; Z92.21 Personal history of antineoplastic chemotherapy; Z79.82 Long term (current) use of aspirin
CPT/HCPCS: 36415; 71045; 71046; 71250; 74176; 76775; 80048; 80053; 80202; 81003; 81015; 82533; 82803; 83605; 83735; 83880; 84100; 84443; 84484; 85025; 85610; 85652; 85730; 86140; 86706; 86850; 86900; 86901; 87040; 87070; 87077; 87086; 87186; 87205; 87340; 87641; 93005; 93306; 94660; 99285; 99406; A9270-GY; C8929; J1642; J1644; J2270; J2543; J3370; Q5106